=== PATIENT | female | born 1960 | race Caucasian/White ===

== ENCOUNTER 2017-12-13 17:21 | Emergency (ER) | payer MEDICARE ==
[~2017-12-13] VITALS: Ht 160 cm; Wt 59.0 kg
[~2017-12-13 17:21] MED LIST: LORCET 10-6501 EACH PO; SOMA250 MG
[2017-12-13 18:44] LABS: BASOPHILS % 0.3 % (0.0-1.0); EOSINOPHILS % 0.2 % (0.0-6.0); HEMATOCRIT 41.6 % (34.2-44.1); HEMOGLOBIN 13.9 g/dL (12.0-16.0); LYMPHOCYTES # (AUTO) 1.7 (1.0-3.2); LYMPHOCYTES % 18.4 % (18.0-39.1); MEAN CORPUSCULAR HEMOGLOBIN 31.7 pg (28-32); MEAN CORPUSCULAR HGB CONC 33.4 g/dL (31-35); MONOCYTES # (AUTO) 0.4 (0.2-0.8); MONOCYTES % 4.9 % (4.4-11.3); NEUTROPHILS # (AUTO) 6.8 (2.1-6.9); PLATELET COUNT 148 x10e3/uL (140-360); RED BLOOD COUNT 4.38 x10e6/uL (3.6-5.1); RED CELL DISTRIBUTION WIDTH 12.3 % (11.7-14.4)
[2017-12-13 18:55] LABS: CLARITY,URINE CLOUDY (CLEAR); COLOR,URINE YELLOW (YELLOW); LEUKOCYTE ESTERASE ,URINE 2+ (NEGATIVE); NITRITE,URINE POSITIVE (NEGATIVE)
[2017-12-13] MEDS: CEFTRIAXONE SOD 1 GM VIAL IM ONE ×2 (18:55→19:00)
[2017-12-13 18:56] LABS: BILIRUBIN,URINE NEGATIVE (NEGATIVE); KETONES,URINE TRACE (NEGATIVE); PROTEIN,URINE DIPSTICK TRACE (NEGATIVE); URINE UROBILINOGEN 0.2 mg/dL (0.2 - 1)
[2017-12-13] MEDS ORDERED: CEFTRIAXONE SOD 1 GM VIAL IV ONE (19:00)
[2017-12-13 19:01] LABS: ALANINE AMINOTRANSFERASE 7 IU/L (0-55); ALBUMIN 3.8 g/dL (3.5-5.0); ALBUMIN/GLOBULIN RATIO 1.1 (0.8-2.0); ALKALINE PHOSPHATASE 111 IU/L (40-150); ANION GAP 15.5 mmol/L (8-16); BLOOD UREA NITROGEN 10 mg/dL (7-26); BUN/CREATININE RATIO 14 (6-25); CALCIUM 9.6 mg/dL (8.4-10.2); CARBON DIOXIDE 24 mmol/L (22-29); CHLORIDE 103 mmol/L (98-107); CREATININE, SERUM 0.73 mg/dL (0.57-1.11); EST GLOMERULAR FILTRATION RATE > 60 ML/MIN (60-); GLUCOSE 113 mg/dL (74-118); POTASSIUM 3.5 mmol/L (3.5-5.1); SODIUM 139 mmol/L (136-145)
[2017-12-13 19:06] LABS: BACTERIA,URINE MANY /HPF; WBC,URINE (MAN) 21-50 /HPF (0-5)
--- NOTE | 2017-12-13 20:02 | Diagnostic Imaging Report ---
EXAM: CT Abdomen and Pelvis WITH contrast INDICATION: Sepsis, UTI COMPARISON: 03/12/2008 TECHNIQUE: Abdomen and pelvis were scanned utilizing a multidetector helical scanner from the lung base to the pubic symphysis after administration of IV contrast. Coronal and sagittal reformations were obtained. Routine protocol is performed. IV CONTRAST: None. ORAL CONTRAST: None RADIATION DOSE: Total DLP: 544.73 mGy*cm Estimated effective dose: (DLP x 0.015 x size factor) mSv COMPLICATIONS: None FINDINGS: LINES and TUBES: None. LOWER THORAX: Unremarkable HEPATOBILIARY: A few subcentimeter hepatic hypodensities are too small to characterize, but probably represent cysts.. No biliary ductal dilation. GALLBLADDER: The gallbladder is distended No radio-opaque stones or sludge. No wall thickening. SPLEEN: No splenomegaly. PANCREAS: No focal masses or ductal dilatation. ADRENALS: No adrenal nodules KIDNEYS/URETERS: Duplicated collecting systems bilaterally. There appear to be single bilateral ureters. No hydronephrosis. No cystic or solid mass lesions. No stones. GI TRACT: A gastric lap band device is present. No abnormal distention, wall thickening, or evidence of bowel obstruction. There is a large amount of stool in the colon. There are scattered sigmoid diverticula without evidence of acute inflammation. Appendix is normal. PELVIC ORGANS/BLADDER: Bilateral tubal ligation clips. The bladder is unremarkable. LYMPH NODES: No lymphadenopathy. VESSELS: There is mild atherosclerotic disease in the aorta and major arterial branches. PERITONEUM / RETROPERITONEUM: No free air or fluid. BONES: Multilevel degenerative changes of the thoracic and lumbar spine. Severe disc space narrowing at L5-S1. SOFT TISSUES: Unremarkable. IMPRESSION: 1. 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 There is a single ureter on each side. 2. No renal or ureteral stones. No hydronephrosis. Prosper Doan MD Signed by: Dr. Prosper Doan M.D. on 12/13/2017 7:58 PM
[2017-12-13] MEDS ORDERED: LEVAQUIN500 MG PO (20:43)
[2017-12-13] MEDS ORDERED: IBUPROFEN 600 MG TAB PO STA (20:57)
[2017-12-13] MEDS ORDERED: ACETAMINOPHEN 325 MG TAB PO ONE (21:00)
[2017-12-13 21:26] VITALS: BP 115/69
== END 2017-12-13 21:36 | disposition home or self-care (01) ==
LOC: ER 17:21
DX: R50.9 Fever, unspecified (principal); N30.91 Cystitis, unspecified with hematuria; I10 Essential (primary) hypertension; G40.909 Epilepsy, unspecified, not intractable, without status epilepticus; Z98.84 Bariatric surgery status
CPT/HCPCS: 36415; 74176; 80053; 81001; 83605; 84702; 85025; 87040; 87086; 87186; 99284; J0696

== ENCOUNTER → 2017-12-31 | Day surgery (SDC) | payer MEDICARE ==
[~2017-12-31] MED LIST changes: +FENTANYL CITRATE/PF 100MCG/2 ML INJ ONE; +LEVAQUIN500 MG PO; +LEVETIRACETAM500 MG PO; +LIDOCAINE HCL 2% LOCAL INJ 5 ML SDV VIAL INJ ONE; +LOSARTAN POTASS50 MG PO; +MELOXICAM15 MG PO; +MIDAZOLAM HCL 2 MG/2 ML VIAL ONE; +NORCO 10-325 T1 EACH PO; +PROPOFOL IV EMULSION 10 MG/ML 20 ML VIAL ONE; +SOMA350 MG PO
[2017-12-31 14:25] VITALS: BP 109/53
== END | disposition home or self-care (01) ==
LOC: OR 11:03
PROVIDERS: ATTEND Internal Medicine Gastroenterology
DX: K29.70 Gastritis, unspecified, without bleeding (principal); K21.0 Gastro-esophageal reflux disease with esophagitis; K44.9 Diaphragmatic hernia without obstruction or gangrene; K59.00 Constipation, unspecified; K64.8 Other hemorrhoids; Z71.3 Dietary counseling and surveillance; Z98.84 Bariatric surgery status; R63.4 Abnormal weight loss; R56.9 Unspecified convulsions; J44.9 Chronic obstructive pulmonary disease, unspecified; I10 Essential (primary) hypertension; G47.30 Sleep apnea, unspecified; E66.3 Overweight; F17.210 Nicotine dependence, cigarettes, uncomplicated; Z88.2 Allergy status to sulfonamides; Z01.810 Encounter for preprocedural cardiovascular examination; Z68.25 Body mass index [BMI] 25.0-25.9, adult
CPT/HCPCS: 43239; 45378; 88305; 88312; 93005; J2001; J2250

== ENCOUNTER → 2018-08-29 | Outpatient (CLI) | payer MEDICARE ==
[~2018-08-29] MED LIST changes: -FENTANYL CITRATE/PF 100MCG/2 ML INJ ONE; -LIDOCAINE HCL 2% LOCAL INJ 5 ML SDV VIAL INJ ONE; -MIDAZOLAM HCL 2 MG/2 ML VIAL ONE; -PROPOFOL IV EMULSION 10 MG/ML 20 ML VIAL ONE
== END ==
LOC: MAMMO 08:34
PROVIDERS: ATTEND Internal Medicine
DX: Z12.31 Encounter for screening mammogram for malignant neoplasm of breast (principal)
CPT/HCPCS: 77067

== ENCOUNTER 2020-05-24 15:00 | Emergency (ER) | payer MEDICARE ==
[~2020-05-24] VITALS: Ht 160 cm; Wt 54.4 kg
== END 2020-05-24 18:48 | disposition home or self-care (01) ==
LOC: ER 15:14
DX: R10.33 Periumbilical pain (principal); K59.00 Constipation, unspecified; I10 Essential (primary) hypertension; J44.9 Chronic obstructive pulmonary disease, unspecified; M54.9 Dorsalgia, unspecified; G89.29 Other chronic pain; Z98.84 Bariatric surgery status; F17.210 Nicotine dependence, cigarettes, uncomplicated
CPT/HCPCS: 74019; 99283

== ENCOUNTER → 2020-11-30 | Outpatient (CLI) | payer MEDICARE | LOC: MAMMO 09:44 | PROVIDERS: ATTEND Internal Medicine | DX: Z12.31 Encounter for screening mammogram for malignant neoplasm of breast (principal) | CPT/HCPCS: 77067 ==

== ENCOUNTER 2021-09-24 15:19 | Inpatient (IN) | payer MEDICARE ==
[~2021-09-24] VITALS: Ht 160 cm; Wt 67.1 kg
[2021-09-24] VITALS (8 sets, daily range): BP systolic 101–120; BP diastolic 60–78
[2021-09-24] MEDS ORDERED: CEFEPIME 2 GM in SODIUM CHLORIDE 0.9% 100 ML IV ONE (15:45)
[2021-09-24] MEDS ORDERED: SODIUM CHLORIDE 0.9% 1000ML 1,000 ML IV ONE ×2 (15:45→17:30)
[2021-09-24] MEDS ORDERED: METHYLPREDNISOLONE SOD SUCC 125 MG/2ML VIAL IV ONE (15:45)
[2021-09-24 15:50] LABS: BASOPHILS % 0.2 % (0.0-1.0); EOSINOPHILS % 0.2 % (0.0-6.0); HEMATOCRIT 38.3 % (34.2-44.1); HEMOGLOBIN 12.5 g/dL (12.0-16.0); LYMPHOCYTES # (AUTO) 0.9 (1.0-3.2); LYMPHOCYTES % 9.7 % (18.0-39.1); MEAN CORPUSCULAR HGB CONC 32.6 g/dL (31-35); MONOCYTES # (AUTO) 0.9 (0.2-0.8); MONOCYTES % 9.5 % (4.4-11.3); NEUTROPHILS # (AUTO) 7.4 (2.1-6.9); NEUTROPHILS % 79.8 % (38.7-80.0); PLATELET COUNT 154 x10e3/uL (140-360); RED BLOOD COUNT 4.03 x10e6/uL (3.6-5.1); RED CELL DISTRIBUTION WIDTH 12.7 % (11.7-14.4)
[2021-09-24 16:00] LABS: CLARITY,URINE HAZY (CLEAR); COLOR,URINE YELLOW (YELLOW); LEUKOCYTE ESTERASE ,URINE NEGATIVE (NEGATIVE); NITRITE,URINE NEGATIVE (NEGATIVE); PROTEIN,URINE DIPSTICK NEGATIVE (NEGATIVE)
[2021-09-24] MEDS ORDERED: ACETAMINOPHEN 325 MG TAB PO ONE (16:00)
[2021-09-24 16:01] LABS: INR 1.05; KETONES,URINE NEGATIVE (NEGATIVE); PROTHROMBIN TIME 14.7 seconds (11.9-14.5); URINE UROBILINOGEN 0.2 mg/dL (0.2 - 1)
[2021-09-24 16:02] LABS: PARTIAL THROMBOPLASTIN TIME 39.2 seconds (23.8-35.5)
[2021-09-24 16:07] LABS: AMPHETAMINES SCREEN,URINE NEGATIVE (NEGATIVE); PHENCYCLIDINE SCREEN,URINE NEGATIVE (NEGATIVE)
[2021-09-24 16:08] LABS: BACTERIA,URINE FEW /HPF; BENZODIAZEPINES SCREEN,URINE POSITIVE (NEGATIVE); EPITHELIAL CELLS,URINE FEW /LPF
[2021-09-24 16:11] LABS: ALBUMIN/GLOBULIN RATIO 0.8 (0.8-2.0); ALKALINE PHOSPHATASE 121 IU/L (40-150); ANION GAP 17.6 mmol/L (8-16); BLOOD UREA NITROGEN 18 mg/dL (7-26); BUN/CREATININE RATIO 16 (6-25); CALCIUM 8.3 mg/dL (8.4-10.2); CARBON DIOXIDE 21 mmol/L (22-29); CHLORIDE 99 mmol/L (98-107); CREATINE KINASE 230 IU/L (29-168); CREATININE, SERUM 1.16 mg/dL (0.57-1.11); GLUCOSE 118 mg/dL (74-118); POTASSIUM 3.6 mmol/L (3.5-5.1); SODIUM 134 mmol/L (136-145)
[2021-09-24 16:19] LABS: ALANINE AMINOTRANSFERASE < 6 IU/L (0-55)
[2021-09-24] MEDS ORDERED: ALBUTEROL/IPRATROPIUM 3 ML NEB NEB ONE (17:00)
[2021-09-24] MEDS ORDERED: SODIUM CHLORIDE 0.9% 1000ML 1,000 ML IV STA (17:20)
[2021-09-24] MEDS ORDERED: SODIUM CHLORIDE 0.9% 1000ML 1,000 ML IV SCH (17:30)
[2021-09-24] MEDS ORDERED: SODIUM CHLORIDE 0.9% 1000ML 2,000 ML ONE (17:31)
[2021-09-24 17:38] LABS: ABG HCO3 21 mmol/L (22-26); ABG PCO2 44 mmHg (35-45); ABG PH 7.28 (7.35-7.45); ABG PO2 77 mmHg (80-105); ABG TCO2 22
[2021-09-24] MEDS ORDERED: ACETAMINOPHEN 325 MG TAB PO PRN ×2 (18:30→22:15)
[2021-09-24] MEDS ORDERED: LACTATED RINGER'S 1,000 ML INJ ONE (18:30)
[2021-09-24] MEDS ORDERED: THIAMINE HCL INJ 100 MG/ML 2ML VIAL IV ONE (18:45)
[2021-09-24] MEDS ORDERED: NOREPINEPHRINE 8 MG/D5W 250 ML 250 ML IV SCH (18:45)
[2021-09-24] MEDS: ALBUTEROL SULF 0.083% NEB SOLN 3 ML NEB NEB SCH ×2 (19:50→22:38)
[2021-09-24] MEDS: IPRATROPIUM BROMIDE 0.02% 2.5 ML NEB NEB SCH (19:50)
[2021-09-24] MEDS ORDERED: METHYLPREDNISOLONE SOD SUCC 125 MG/2ML VIAL IV SCH (22:00)
[2021-09-24] MEDS ORDERED: BENZONATATE 100 MG CAP PO PRN (22:15)
[2021-09-24] MEDS ORDERED: ALBUTEROL/IPRATROPIUM 3 ML NEB NEB PRN (22:15)
[2021-09-24] MEDS ORDERED: DIPHENHYDRAMINE HCL 25 MG CAP PO PRN (22:15)
[2021-09-24] MEDS ORDERED: DOCUSATE SODIUM 100 MG CAP PO PRN (22:15)
[2021-09-24] MEDS ORDERED: POTASSIUM CHLORIDE 20 MEQ TAB CR PO PRN (22:15)
[2021-09-24] MEDS ORDERED: SIMETHICONE 80 MG CHEW PO PRN (22:15)
[2021-09-24] MEDS ORDERED: ONDANSETRON HCL INJ 2MG/ML 2ML 2 MG/ML VIAL IV PRN (22:15)
[2021-09-24] MEDS ORDERED: HYDRALAZINE HCL 20 MG/ML VIAL IV PRN (22:15)
[2021-09-24] MEDS ORDERED: LIDOCAINE 4% PATCH TP PRN (22:15)
[2021-09-24] MEDS ORDERED: DEXTROSE 50% SYRINGE 50 ML IV PRN (22:15)
[2021-09-25] VITALS: BP 102/56
[2021-09-25] MEDS ORDERED: METHYLPREDNISOLONE SOD SUCC 40 MG/ML VIAL 1ML IV SCH
[2021-09-25 00:25] LABS: CREATINE KINASE 257 IU/L (29-168)
[2021-09-25 01:00] VITALS: BP 117/73
[2021-09-25 02:00] VITALS: BP 125/77
[2021-09-25] MEDS: IPRATROPIUM BROMIDE 0.02% 2.5 ML NEB NEB SCH (02:55)
[2021-09-25] MEDS: ALBUTEROL SULF 0.083% NEB SOLN 3 ML NEB NEB SCH (02:55)
[2021-09-25 03:00] VITALS: BP 108/70
[2021-09-25] MEDS ORDERED: PANTOPRAZOLE SOD 40 MG TABEC PO SCH (07:30)
[2021-09-25] MEDS ORDERED: ENOXAPARIN SOD INJ 40 MG/0.4 ML SYR SC SCH (17:00)
== END 2021-09-25 06:35 | disposition left against medical advice (07) | DRG 871 ==
LOC: ER 15:38 → ERHOLD 17:27 → ICU 20:25
PROVIDERS: ADMIT Internal Medicine; ATTEND Internal Medicine
PROC: 02HV33Z Insertion of Infusion Device into Superior Vena Cava, Percutaneous Approach (ICD-10-PCS; principal; 2021-09-24)
PROC: 3E043XZ Introduction of Vasopressor into Central Vein, Percutaneous Approach (ICD-10-PCS; 2021-09-24)
PROC: 3E04329 Introduction of Other Anti-infective into Central Vein, Percutaneous Approach (ICD-10-PCS; 2021-09-24)
DX: A41.9 Sepsis, unspecified organism (principal); J18.9 Pneumonia, unspecified organism; G93.41 Metabolic encephalopathy; J44.0 Chronic obstructive pulmonary disease with (acute) lower respiratory infection; J44.1 Chronic obstructive pulmonary disease with (acute) exacerbation; N17.9 Acute kidney failure, unspecified; E87.1 Hypo-osmolality and hyponatremia; D64.9 Anemia, unspecified; Z98.84 Bariatric surgery status; Z20.822 Contact with and (suspected) exposure to COVID-19; Z88.2 Allergy status to sulfonamides; F17.200 Nicotine dependence, unspecified, uncomplicated; R09.02 Hypoxemia; G89.29 Other chronic pain; F11.90 Opioid use, unspecified, uncomplicated; R65.20 Severe sepsis without septic shock
CPT/HCPCS: 36415; 36569; 36600; 51700; 71045; 80053; 80307; 80320; 80329; 81001; 82550; 82553; 82805; 83605; 84484; 85025; 85610; 85730; 87040; 87071; 87186; 87205; 94640; 94799; 99285; J0456; J0692; J2920; J2930; J3411; J7030; J7050; J7121

== ENCOUNTER 2021-09-26 00:13 | Inpatient (IN) | payer MEDICARE ==
[~2021-09-26] VITALS: Ht 160 cm; Wt 68.0 kg
[2021-09-26] MEDS ORDERED: SODIUM CHLORIDE 0.9% 1000ML 1,000 ML IV ONE ×2 (00:45→02:15)
[2021-09-26 01:00] LABS: BASOPHILS % 0.1 % (0.0-1.0); HEMATOCRIT 38.7 % (34.2-44.1); HEMOGLOBIN 12.5 g/dL (12.0-16.0); LYMPHOCYTES # (AUTO) 1.6 (1.0-3.2); LYMPHOCYTES % 14.9 % (18.0-39.1); MEAN CORPUSCULAR HEMOGLOBIN 31.3 pg (28-32); MEAN CORPUSCULAR HGB CONC 32.3 g/dL (31-35); MEAN CORPUSCULAR VOLUME 96.8 fL (81-99); MONOCYTES # (AUTO) 0.7 (0.2-0.8); MONOCYTES % 6.3 % (4.4-11.3); NEUTROPHILS # (AUTO) 8.1 (2.1-6.9); NEUTROPHILS % 78.3 % (38.7-80.0); PLATELET COUNT 204 x10e3/uL (140-360); RED CELL DISTRIBUTION WIDTH 12.9 % (11.7-14.4)
[2021-09-26 01:15] LABS: ALANINE AMINOTRANSFERASE 11 IU/L (0-55); ALBUMIN 3.3 g/dL (3.5-5.0); ALBUMIN/GLOBULIN RATIO 0.8 (0.8-2.0); ALKALINE PHOSPHATASE 114 IU/L (40-150); ANION GAP 16.3 mmol/L (8-16); BLOOD UREA NITROGEN 15 mg/dL (7-26); BUN/CREATININE RATIO 19 (6-25); CALCIUM 9.1 mg/dL (8.4-10.2); CARBON DIOXIDE 25 mmol/L (22-29); CHLORIDE 105 mmol/L (98-107); CREATINE KINASE 349 IU/L (29-168); CREATININE, SERUM 0.81 mg/dL (0.57-1.11); GLUCOSE 88 mg/dL (74-118); POTASSIUM 3.3 mmol/L (3.5-5.1)
[2021-09-26] MEDS ORDERED: ACETAMINOPHEN 325 MG TAB PO PRN (01:15)
[2021-09-26] MEDS ORDERED: SODIUM CHLORIDE 0.9% 1000ML 1,000 ML IV SCH (01:15)
[2021-09-26 01:20] LABS: SODIUM 143 mmol/L (136-145)
[2021-09-26] MEDS: Vancomycin IV 1 GM in SODIUM CHLORIDE 0.9% 250ML 250 ML IV SCH ×2 (01:22→12:12)
[2021-09-26] MEDS ORDERED: SIMETHICONE 80 MG CHEW PO PRN (01:45)
[2021-09-26] MEDS ORDERED: DIPHENHYDRAMINE HCL 25 MG CAP PO PRN (01:45)
[2021-09-26] MEDS ORDERED: DEXTROSE 50% SYRINGE 50 ML IV PRN (01:45)
[2021-09-26] MEDS ORDERED: ALBUTEROL/IPRATROPIUM 3 ML NEB NEB PRN (01:45)
[2021-09-26] MEDS ORDERED: MELATONIN 5 MG TABLET PO PRN (01:45)
[2021-09-26] MEDS ORDERED: HYDRALAZINE HCL 20 MG/ML VIAL IV PRN (01:45)
[2021-09-26] MEDS ORDERED: DOCUSATE SODIUM 100 MG CAP PO PRN (01:45)
[2021-09-26] MEDS ORDERED: ONDANSETRON HCL INJ 2MG/ML 2ML 2 MG/ML VIAL IV PRN (01:45)
[2021-09-26] MEDS: DEXTROSE 5%/0.9% SOD CHL 1,000 ML IV SCH ×2 (02:59→15:16)
[2021-09-26] MEDS: ALBUTEROL SULF 0.083% NEB SOLN 3 ML NEB NEB SCH ×5 (04:17→18:55)
[2021-09-26] MEDS: PANTOPRAZOLE SOD 40 MG TABEC PO SCH (07:10)
[2021-09-26] MEDS: IPRATROPIUM BROMIDE 0.02% 2.5 ML NEB NEB SCH ×4 (07:13→19:13)
[2021-09-26] MEDS: TRAMADOL HCL 50 MG TAB PO PRN ×3 (07:15→16:47)
[2021-09-26 09:29] LABS: CREATINE KINASE 164 IU/L (29-168)
[2021-09-26] MEDS: NICOTINE 21 MG/EA PATCH TOP PRN (11:28)
[2021-09-26] MEDS: ENOXAPARIN SOD INJ 40 MG/0.4 ML SYR SC SCH (16:47)
[2021-09-26 19:51] LABS: CREATINE KINASE 81 IU/L (29-168)
[2021-09-26 21:54] VITALS: BP 132/77
[2021-09-27] VITALS (8 sets, daily range): BP systolic 101–139; BP diastolic 53–75
[2021-09-27] MEDS: ALBUTEROL SULF 0.083% NEB SOLN 3 ML NEB NEB SCH ×6 (00:25→22:00)
[2021-09-27] MEDS: Vancomycin IV 1 GM in SODIUM CHLORIDE 0.9% 250ML 250 ML IV SCH ×2 (00:37→12:00)
[2021-09-27] MEDS: TRAMADOL HCL 50 MG TAB PO PRN ×3 (03:47→22:02)
[2021-09-27] MEDS: DEXTROSE 5%/0.9% SOD CHL 1,000 ML IV SCH ×2 (04:25→17:28)
[2021-09-27 05:57] LABS: BASOPHILS % 0.3 % (0.0-1.0); EOSINOPHILS % 0.3 % (0.0-6.0); HEMATOCRIT 30.7 % (34.2-44.1); LYMPHOCYTES # (AUTO) 1.7 (1.0-3.2); MEAN CORPUSCULAR HEMOGLOBIN 30.5 pg (28-32); MEAN CORPUSCULAR HGB CONC 31.9 g/dL (31-35); MEAN CORPUSCULAR VOLUME 95.6 fL (81-99); MONOCYTES # (AUTO) 0.4 (0.2-0.8); MONOCYTES % 9.6 % (4.4-11.3); NEUTROPHILS # (AUTO) 1.8 (2.1-6.9); NEUTROPHILS % 46.8 % (38.7-80.0); PLATELET COUNT 157 x10e3/uL (140-360); RED BLOOD COUNT 3.21 x10e6/uL (3.6-5.1); RED CELL DISTRIBUTION WIDTH 13.1 % (11.7-14.4)
[2021-09-27] MEDS: BENZONATATE 100 MG CAP PO PRN (06:02)
[2021-09-27 06:08] LABS: HEMOGLOBIN 9.8 g/dL (12.0-16.0)
[2021-09-27 06:29] LABS: MAGNESIUM 1.6 MG/DL (1.3-2.1); PHOSPHORUS 2.9 MG/DL (2.3-4.7)
[2021-09-27 06:40] LABS: ERYTHROCYTE SEDIMENTATION RATE 47 mm/hr (0-20)
[2021-09-27 06:43] LABS: ANION GAP 11.9 mmol/L (8-16); BLOOD UREA NITROGEN < 5 mg/dL (7-26); CALCIUM 7.7 mg/dL (8.4-10.2); CARBON DIOXIDE 25 mmol/L (22-29); CHLORIDE 109 mmol/L (98-107); CREATININE, SERUM 0.55 mg/dL (0.57-1.11); GLUCOSE 94 mg/dL (74-118); SODIUM 143 mmol/L (136-145)
[2021-09-27 06:44] LABS: BUN/CREATININE RATIO 9 (6-25)
[2021-09-27 06:45] LABS: POTASSIUM 2.9 mmol/L (3.5-5.1)
[2021-09-27] MEDS: IPRATROPIUM BROMIDE 0.02% 2.5 ML NEB NEB SCH ×4 (07:16→23:45)
[2021-09-27] MEDS: PANTOPRAZOLE SOD 40 MG TABEC PO SCH (09:11)
[2021-09-27] MEDS: ENOXAPARIN SOD INJ 40 MG/0.4 ML SYR SC SCH (16:43)
[2021-09-27] MEDS: POTASSIUM CHLORIDE 20 MEQ TAB CR PO PRN (19:23)
[2021-09-27] MEDS: LIDOCAINE 4% PATCH TP PRN (22:02)
[2021-09-28] VITALS (8 sets, daily range): BP systolic 125–153; BP diastolic 80–94
[2021-09-28] MEDS: ALBUTEROL SULF 0.083% NEB SOLN 3 ML NEB NEB SCH ×6 (02:00→20:10)
[2021-09-28] MEDS: Vancomycin IV 1 GM in SODIUM CHLORIDE 0.9% 250ML 250 ML IV SCH ×2 (03:02→12:49)
[2021-09-28] MEDS: IPRATROPIUM BROMIDE 0.02% 2.5 ML NEB NEB SCH ×3 (03:07→18:46)
[2021-09-28] MEDS: BENZONATATE 100 MG CAP PO PRN (03:11)
[2021-09-28] MEDS: DEXTROSE 5%/0.9% SOD CHL 1,000 ML IV SCH (05:53)
[2021-09-28] MEDS: PANTOPRAZOLE SOD 40 MG TABEC PO SCH (08:11)
[2021-09-28] MEDS: LIDOCAINE 4% PATCH TP PRN (08:12)
[2021-09-28] MEDS: NICOTINE 21 MG/EA PATCH TOP PRN (08:12)
[2021-09-28 13:12] LABS: ANION GAP 14.1 mmol/L (8-16); BLOOD UREA NITROGEN < 5 mg/dL (7-26); CALCIUM 7.6 mg/dL (8.4-10.2); CARBON DIOXIDE 27 mmol/L (22-29); CHLORIDE 105 mmol/L (98-107); GLUCOSE 92 mg/dL (74-118); POTASSIUM 3.1 mmol/L (3.5-5.1); SODIUM 143 mmol/L (136-145)
[2021-09-28 13:14] LABS: BUN/CREATININE RATIO 10 (6-25)
[2021-09-28] MEDS: TRAMADOL HCL 50 MG TAB PO PRN (15:07)
[2021-09-28] MEDS: POTASSIUM CHLORIDE 20 MEQ TAB CR PO PRN (15:07)
[2021-09-28] MEDS: ENOXAPARIN SOD INJ 40 MG/0.4 ML SYR SC SCH (16:43)
[2021-09-29] VITALS: BP 136/81
[2021-09-29] MEDS: IPRATROPIUM BROMIDE 0.02% 2.5 ML NEB NEB SCH ×5 (00:10→19:57)
[2021-09-29] MEDS: ALBUTEROL SULF 0.083% NEB SOLN 3 ML NEB NEB SCH ×6 (00:11→19:59)
[2021-09-29] MEDS: TRAMADOL HCL 50 MG TAB PO PRN ×4 (00:50→19:12)
[2021-09-29] MEDS: BENZONATATE 100 MG CAP PO PRN (00:50)
[2021-09-29] MEDS: Vancomycin IV 1 GM in SODIUM CHLORIDE 0.9% 250ML 250 ML IV SCH ×2 (01:00→13:00)
[2021-09-29 04:00] VITALS: BP 133/74
[2021-09-29 06:18] LABS: BASOPHILS % 0.5 % (0.0-1.0); EOSINOPHILS # (AUTO) 0.1 (0.0-0.4); EOSINOPHILS % 1.6 % (0.0-6.0); HEMATOCRIT 34.9 % (34.2-44.1); HEMOGLOBIN 11.2 g/dL (12.0-16.0); LYMPHOCYTES # (AUTO) 1.2 (1.0-3.2); LYMPHOCYTES % 26.5 % (18.0-39.1); MEAN CORPUSCULAR HEMOGLOBIN 30.8 pg (28-32); MEAN CORPUSCULAR HGB CONC 32.1 g/dL (31-35); MEAN CORPUSCULAR VOLUME 95.9 fL (81-99); MONOCYTES # (AUTO) 0.4 (0.2-0.8); MONOCYTES % 8.6 % (4.4-11.3); NEUTROPHILS # (AUTO) 2.8 (2.1-6.9); NEUTROPHILS % 62.3 % (38.7-80.0); PLATELET COUNT 192 x10e3/uL (140-360); RED BLOOD COUNT 3.64 x10e6/uL (3.6-5.1); RED CELL DISTRIBUTION WIDTH 12.5 % (11.7-14.4)
[2021-09-29 07:01] LABS: ANION GAP 19.3 mmol/L (8-16); BLOOD UREA NITROGEN < 5 mg/dL (7-26); CALCIUM 7.7 mg/dL (8.4-10.2); CARBON DIOXIDE 24 mmol/L (22-29); CHLORIDE 104 mmol/L (98-107); CREATININE, SERUM 0.56 mg/dL (0.57-1.11); GLUCOSE 79 mg/dL (74-118); POTASSIUM 3.3 mmol/L (3.5-5.1); SODIUM 144 mmol/L (136-145)
[2021-09-29 07:02] LABS: BUN/CREATININE RATIO 9 (6-25)
[2021-09-29 07:54] VITALS: BP 133/74
[2021-09-29] MEDS: PANTOPRAZOLE SOD 40 MG TABEC PO SCH (07:56)
[2021-09-29] MEDS: POTASSIUM CHLORIDE 20 MEQ TAB CR PO PRN (08:03)
[2021-09-29] MEDS: LIDOCAINE 4% PATCH TP PRN (08:03)
[2021-09-29] MEDS: NICOTINE 21 MG/EA PATCH TOP PRN (08:03)
[2021-09-29 08:37] VITALS: BP 151/86
[2021-09-29 12:05] VITALS: BP 134/79
[2021-09-29] MEDS ORDERED: ONDANSETRON HCL 4 MG ORAL DISINTEGRATING TAB PO PRN (15:15)
[2021-09-29] MEDS: ENOXAPARIN SOD INJ 40 MG/0.4 ML SYR SC SCH (16:20)
== END 2021-09-29 20:55 | disposition home or self-care (01) | DRG 871 ==
LOC: ER 00:20 → OBSVTOIN 01:08 → INTOOBSV 01:08 → ERHOLD 01:08 → MED/SURG2 20:49
PROVIDERS: ADMIT Internal Medicine; ATTEND Internal Medicine
PROC: 02HV33Z Insertion of Infusion Device into Superior Vena Cava, Percutaneous Approach (ICD-10-PCS; principal; 2021-09-26)
PROC: 3E04329 Introduction of Other Anti-infective into Central Vein, Percutaneous Approach (ICD-10-PCS; 2021-09-26)
DX: A41.50 Gram-negative sepsis, unspecified (principal); G93.41 Metabolic encephalopathy; J18.9 Pneumonia, unspecified organism; N17.0 Acute kidney failure with tubular necrosis; J44.0 Chronic obstructive pulmonary disease with (acute) lower respiratory infection; E87.2 Acidosis; N39.0 Urinary tract infection, site not specified; J44.1 Chronic obstructive pulmonary disease with (acute) exacerbation; R65.20 Severe sepsis without septic shock; D63.8 Anemia in other chronic diseases classified elsewhere; F17.210 Nicotine dependence, cigarettes, uncomplicated; M17.10 Unilateral primary osteoarthritis, unspecified knee; Z96.659 Presence of unspecified artificial knee joint; Z79.891 Long term (current) use of opiate analgesic; Z98.84 Bariatric surgery status; E87.6 Hypokalemia; G89.4 Chronic pain syndrome; M17.11 Unilateral primary osteoarthritis, right knee; Z96.651 Presence of right artificial knee joint; Z88.2 Allergy status to sulfonamides; J44.9 Chronic obstructive pulmonary disease, unspecified
CPT/HCPCS: 36415; 36569; 71045; 80048; 80053; 80202; 82550; 82553; 82948; 83605; 83735; 84100; 84443; 84484; 85025; 85651; 87040; 93005; 93306; 94640; 94799; 96361; 99251; 99284; J0692; J1650; J2185; J2405; J3370; J7030; J7042; J7050

== ENCOUNTER → 2022-06-20 | Outpatient (CLI) | payer MEDICARE | LOC: RAD 08:47 | PROVIDERS: ATTEND Internal Medicine | DX: M79.604 Pain in right leg (principal) | CPT/HCPCS: 93971 ==

== ENCOUNTER 2022-07-06 04:21 | Emergency (ER) | payer MEDICARE ==
[~2022-07-06] VITALS: Ht 160 cm; Wt 68.0 kg
[2022-07-06] MEDS ORDERED: ASPIRIN 81 MG CHEW TAB PO ONE (04:30)
[2022-07-06] MEDS ORDERED: KETOROLAC TROMETHAMINE 30 MG/ML VIAL IV STA (04:36)
[2022-07-06 04:37] LABS: BASOPHILS % 0.4 % (0.0-1.0); EOSINOPHILS % 0.6 % (0.0-6.0); HEMATOCRIT 39.1 % (34.2-44.1); HEMOGLOBIN 12.3 g/dL (12.0-16.0); LYMPHOCYTES # (AUTO) 1.3 (1.0-3.2); MEAN CORPUSCULAR HEMOGLOBIN 29.6 pg (28-32); MEAN CORPUSCULAR HGB CONC 31.5 g/dL (31-35); MEAN CORPUSCULAR VOLUME 94.2 fL (81-99); MONOCYTES # (AUTO) 0.3 (0.2-0.8); MONOCYTES % 6.6 % (4.4-11.3); NEUTROPHILS # (AUTO) 3.5 (2.1-6.9); NEUTROPHILS % 67.2 % (38.7-80.0); PLATELET COUNT 171 x10e3/uL (140-360); RED BLOOD COUNT 4.15 x10e6/uL (3.6-5.1); RED CELL DISTRIBUTION WIDTH 13.9 % (11.7-14.4)
[2022-07-06] MEDS ORDERED: KETOROLAC TROMETHAMINE 30 MG/ML VIAL ONE (04:52)
[2022-07-06 04:56] LABS: ALBUMIN 3.3 g/dL (3.5-5.0); ALKALINE PHOSPHATASE 104 IU/L (40-150); ANION GAP 14.4 mmol/L (8-16); BLOOD UREA NITROGEN 6 mg/dL (7-26); BUN/CREATININE RATIO 8 (6-25); CARBON DIOXIDE 23 mmol/L (22-29); CHLORIDE 106 mmol/L (98-107); CREATINE KINASE 17 IU/L (29-168); CREATININE, SERUM 0.73 mg/dL (0.57-1.11); GLUCOSE 155 mg/dL (74-118); POTASSIUM 3.4 mmol/L (3.5-5.1); SODIUM 140 mmol/L (136-145)
[2022-07-06 04:57] LABS: ALANINE AMINOTRANSFERASE < 6 IU/L (0-55)
[2022-07-06] MEDS ORDERED: IOPAMIDOL 370 MG/ML 100 ML INFUS..BTL INJ ONE (05:19)
[2022-07-06] MEDS ORDERED: DICYCLOMINE HCL20 MG PO (05:51)
[2022-07-06] MEDS ORDERED: PANTOPRAZOLE SO40 MG PO (05:51)
[2022-07-06] MEDS ORDERED: ONDANSETRON ODT4 MG PO (05:51)
== END 2022-07-06 06:00 | disposition home or self-care (01) ==
LOC: ER 04:29
DX: R10.9 Unspecified abdominal pain (principal); R11.2 Nausea with vomiting, unspecified; R19.7 Diarrhea, unspecified; Z20.822 Contact with and (suspected) exposure to COVID-19; Z98.84 Bariatric surgery status; F17.210 Nicotine dependence, cigarettes, uncomplicated
CPT/HCPCS: 36415; 74177; 80053; 80320; 82550; 82553; 83690; 84484; 85025; 93005; 99284; C9113; J1885; Q9967; U0002

== ENCOUNTER → 2022-08-18 | Outpatient (CLI) | payer MEDICARE ==
[~2022-08-18] MED LIST changes: +DICYCLOMINE HCL20 MG PO; +IOPAMIDOL 370 MG/ML 100 ML INFUS..BTL INJ ONE; +ONDANSETRON ODT4 MG PO; +PANTOPRAZOLE SO40 MG PO
[2022-08-18 16:45] LABS: CREATININE, SERUM 0.89 mg/dL (0.57-1.11)
== END ==
LOC: CT 15:53
PROVIDERS: ATTEND Internal Medicine
DX: R10.84 Generalized abdominal pain (principal)
CPT/HCPCS: 36415; 74160; 82565; 84520; Q9967

== ENCOUNTER → 2023-03-23 | Outpatient (REF) | payer MEDICARE ==
[~2023-03-23] MED LIST changes: +CIPRO500 MG PO; -IOPAMIDOL 370 MG/ML 100 ML INFUS..BTL INJ ONE; +LOSARTAN POTASS25 MG PO; +NEURONTIN300 MG PO
== END ==
LOC: MAMMO 12:59
PROVIDERS: ATTEND Internal Medicine
DX: Z12.31 Encounter for screening mammogram for malignant neoplasm of breast (principal); M81.0 Age-related osteoporosis without current pathological fracture
CPT/HCPCS: 77067; 77080

== ENCOUNTER 2023-04-01 13:33 | Inpatient (IN) | payer MEDICARE ==
[~2023-04-01] VITALS: Ht 160 cm; Wt 72.3 kg
[2023-04-01 14:30] LABS: BASOPHILS % 0.6 % (0.0-1.0); EOSINOPHILS # (AUTO) 0.1 (0.0-0.4); EOSINOPHILS % 1.2 % (0.0-6.0); HEMATOCRIT 38.1 % (34.2-44.1); HEMOGLOBIN 12.2 g/dL (12.0-16.0); LYMPHOCYTES # (AUTO) 2.1 (1.0-3.2); LYMPHOCYTES % 42.1 % (18.0-39.1); MEAN CORPUSCULAR HEMOGLOBIN 31.7 pg (28-32); MONOCYTES # (AUTO) 0.3 (0.2-0.8); MONOCYTES % 6.6 % (4.4-11.3); NEUTROPHILS # (AUTO) 2.5 (2.1-6.9); NEUTROPHILS % 49.1 % (38.7-80.0); PLATELET COUNT 196 x10e3/uL (140-360); RED BLOOD COUNT 3.85 x10e6/uL (3.6-5.1); RED CELL DISTRIBUTION WIDTH 12.6 % (11.7-14.4); WHITE BLOOD COUNT 5.01 x10e3/uL (4.8-10.8)
[2023-04-01] MEDS ORDERED: SODIUM CHLORIDE FLUSH 10 ML SYR INJ PRN (14:30)
[2023-04-01] MEDS ORDERED: ONDANSETRON HCL INJ 2MG/ML 2ML 2 MG/ML VIAL IV PRN (14:30)
[2023-04-01 14:50] LABS: ALBUMIN 3.4 g/dL (3.5-5.0); ALBUMIN/GLOBULIN RATIO 1.1 (0.8-2.0); ANION GAP 14.2 mmol/L (8-16); BILIRUBIN,TOTAL 0.3 mg/dL (0.2-1.2); CALCIUM 8.7 mg/dL (8.4-10.2); CREATININE, SERUM 0.86 mg/dL (0.57-1.11); TOTAL PROTEIN 6.4 g/dL (6.5-8.1)
[2023-04-01 14:52] LABS: POTASSIUM 3.2 mmol/L (3.5-5.1)
[2023-04-01] MEDS: HYDROCODONE/APAP 10MG-325MG TAB PO PRN ×2 (15:00→20:41)
[2023-04-01 20:00] VITALS: BP 121/53; PULSE 79; RESP 18; TEMP 98.6; O2SAT 99
[2023-04-01 21:00] VITALS: BP 121/53; PULSE 79; RESP 18; TEMP 98.6; O2SAT 99
[2023-04-01] MEDS ORDERED: METHIMAZOLE5 MG (22:39)
[2023-04-02] VITALS (9 sets, daily range): BP systolic 111–147; BP diastolic 53–88; PULSE 72–96; RESP 18; TEMP 98–98.6; O2SAT 99–100
[2023-04-02] MEDS: HYDROCODONE/APAP 10MG-325MG TAB PO PRN ×4 (03:05→19:06)
[2023-04-02 06:52] LABS: BASOPHILS % 0.6 % (0.0-1.0); EOSINOPHILS # (AUTO) 0.1 (0.0-0.4); EOSINOPHILS % 1.3 % (0.0-6.0); HEMATOCRIT 35.4 % (34.2-44.1); HEMOGLOBIN 11.2 g/dL (12.0-16.0); LYMPHOCYTES # (AUTO) 2.3 (1.0-3.2); LYMPHOCYTES % 49.7 % (18.0-39.1); MEAN CORPUSCULAR HEMOGLOBIN 31.5 pg (28-32); MEAN CORPUSCULAR HGB CONC 31.6 g/dL (31-35); MEAN CORPUSCULAR VOLUME 99.4 fL (81-99); MONOCYTES # (AUTO) 0.4 (0.2-0.8); MONOCYTES % 8.1 % (4.4-11.3); NEUTROPHILS # (AUTO) 1.9 (2.1-6.9); NEUTROPHILS % 39.9 % (38.7-80.0); PLATELET COUNT 182 x10e3/uL (140-360); RED BLOOD COUNT 3.56 x10e6/uL (3.6-5.1); RED CELL DISTRIBUTION WIDTH 12.4 % (11.7-14.4); WHITE BLOOD COUNT 4.67 x10e3/uL (4.8-10.8)
[2023-04-02 07:25] LABS: ALBUMIN 2.9 g/dL (3.5-5.0); ALBUMIN/GLOBULIN RATIO 1.2 (0.8-2.0); ANION GAP 11.6 mmol/L (8-16); BILIRUBIN,TOTAL 0.4 mg/dL (0.2-1.2); CALCIUM 8.3 mg/dL (8.4-10.2); CREATININE, SERUM 0.71 mg/dL (0.57-1.11); POTASSIUM 3.6 mmol/L (3.5-5.1); TOTAL PROTEIN 5.4 g/dL (6.5-8.1)
[2023-04-02] MEDS ORDERED: ONDANSETRON HCL 4 MG ORAL DISINTEGRATING TAB PO PRN (10:15)
[2023-04-02] MEDS: NICOTINE 21 MG/EA PATCH TOP SCH ×2 (10:15→10:43)
[2023-04-02] MEDS ORDERED: DICYCLOMINE HCL 20 MG TAB PO PRN (10:15)
[2023-04-02] MEDS: LEVETIRACETAM 500 MG TAB PO SCH ×2 (10:43→21:12)
[2023-04-02] MEDS: CARISOPRODOL 350 MG TAB PO PRN ×2 (10:43→18:21)
[2023-04-02] MEDS: METHIMAZOLE 5 MG TAB PO SCH (11:36)
[2023-04-02] MEDS: GABAPENTIN 300 MG CAP PO SCH ×2 (14:02→21:12)
[2023-04-02] MEDS: MELOXICAM 7.5 MG TAB PO PRN (21:12)
[2023-04-03] VITALS (10 sets, daily range): BP systolic 101–150; BP diastolic 56–91; PULSE 75–117; RESP 17–20; TEMP 97.8–98.8; O2SAT 96–100
[2023-04-03] MEDS: HYDROCODONE/APAP 10MG-325MG TAB PO PRN ×5 (01:01→18:33)
[2023-04-03] MEDS: CARISOPRODOL 350 MG TAB PO PRN ×3 (01:02→17:21)
[2023-04-03] MEDS: LOSARTAN POTASSIUM 25 MG TAB PO SCH (09:25)
[2023-04-03] MEDS: PANTOPRAZOLE SOD 40 MG TABEC PO SCH (09:25)
[2023-04-03] MEDS: NICOTINE 21 MG/EA PATCH TOP SCH ×2 (09:26)
[2023-04-03] MEDS: GABAPENTIN 300 MG CAP PO SCH ×3 (09:26→22:10)
[2023-04-03] MEDS: METHIMAZOLE 5 MG TAB PO SCH (09:31)
[2023-04-03] MEDS ORDERED: ONDANSETRON HCL 4 MG ORAL DISINTEGRATING TAB PO PRN ×3 (11:45)
[2023-04-03] MEDS: LEVETIRACETAM 500 MG TAB PO SCH ×2 (11:55→22:10)
[2023-04-03] MEDS: MELOXICAM 7.5 MG TAB PO PRN (22:14)
[2023-04-04] VITALS: BP 145/79; PULSE 85; RESP 18; TEMP 98.4; O2SAT 100
[2023-04-04] MEDS: HYDROCODONE/APAP 10MG-325MG TAB PO PRN ×3 (01:43→13:04)
[2023-04-04] MEDS: CARISOPRODOL 350 MG TAB PO PRN ×2 (01:44→09:22)
[2023-04-04 04:00] VITALS: BP 123/91; PULSE 92; RESP 18; TEMP 98.1; O2SAT 100
[2023-04-04 08:30] VITALS: BP 120/88; PULSE 88; RESP 18; TEMP 98.3; O2SAT 100
[2023-04-04] MEDS: NICOTINE 21 MG/EA PATCH TOP SCH ×2 (09:00→09:23)
[2023-04-04 09:13] VITALS: BP 123/91; PULSE 92; RESP 18; TEMP 98.1; O2SAT 100
[2023-04-04 09:22] VITALS: BP 123/91
[2023-04-04] MEDS: LOSARTAN POTASSIUM 25 MG TAB PO SCH (09:22)
[2023-04-04] MEDS: GABAPENTIN 300 MG CAP PO SCH (09:23)
[2023-04-04] MEDS: PANTOPRAZOLE SOD 40 MG TABEC PO SCH (09:23)
[2023-04-04] MEDS: METHIMAZOLE 5 MG TAB PO SCH (09:23)
[2023-04-04] MEDS: LEVETIRACETAM 500 MG TAB PO SCH (10:50)
== END 2023-04-04 14:55 | disposition home or self-care (01) | DRG 690 ==
LOC: ER 13:40 → ERHOLD 14:26 → MED/SURG2 18:43
PROVIDERS: ADMIT Internal Medicine; ATTEND Internal Medicine
DX: N39.0 Urinary tract infection, site not specified (principal); Z16.12 Extended spectrum beta lactamase (ESBL) resistance; J44.9 Chronic obstructive pulmonary disease, unspecified; E03.9 Hypothyroidism, unspecified; G40.909 Epilepsy, unspecified, not intractable, without status epilepticus; F41.9 Anxiety disorder, unspecified; M54.50 Low back pain, unspecified; F17.200 Nicotine dependence, unspecified, uncomplicated; B96.20 Unspecified Escherichia coli [E. coli] as the cause of diseases classified elsewhere; F32.9 Major depressive disorder, single episode, unspecified; N32.3 Diverticulum of bladder; G62.9 Polyneuropathy, unspecified; I10 Essential (primary) hypertension; G89.4 Chronic pain syndrome; Z11.52 Encounter for screening for COVID-19; Z86.73 Personal history of transient ischemic attack (TIA), and cerebral infarction without residual deficits; Z96.659 Presence of unspecified artificial knee joint; Z98.84 Bariatric surgery status; Z88.2 Allergy status to sulfonamides
CPT/HCPCS: 36415; 80053; 85025; 87040; 99284; J2185; J2405; J2543; U0002

== ENCOUNTER 2024-05-18 16:35 | Inpatient (IN) | payer MEDICARE ==
[~2024-05-18] VITALS: Ht 160 cm; Wt 65.9 kg
[~2024-05-18 16:35] MED LIST changes: +METHIMAZOLE5 MG
[2024-05-18 17:13] LABS: BASOPHILS # (AUTO) 0.1 (0.0-0.1); BASOPHILS % 0.6 % (0.0-1.0); EOSINOPHILS # (AUTO) 0.1 (0.0-0.4); EOSINOPHILS % 0.5 % (0.0-6.0); HEMATOCRIT 36.3 % (34.2-44.1); HEMOGLOBIN 10.3 g/dL (12.0-16.0); LYMPHOCYTES % 15.1 % (18.0-39.1); MEAN CORPUSCULAR HEMOGLOBIN 29.1 pg (28-32); MEAN CORPUSCULAR HGB CONC 28.4 g/dL (31-35); MEAN CORPUSCULAR VOLUME 102.5 fL (81-99); MONOCYTES # (AUTO) 0.7 (0.2-0.8); MONOCYTES % 5.2 % (4.4-11.3); NEUTROPHILS # (AUTO) 10.1 (2.1-6.9); NEUTROPHILS % 78.1 % (38.7-80.0); PLATELET COUNT 297 x10e3/uL (140-360); RED BLOOD COUNT 3.54 x10e6/uL (3.6-5.1); WHITE BLOOD COUNT 12.96 x10e3/uL (4.8-10.8)
[2024-05-18] MEDS ORDERED: LEVETIRACETAM 1000MG/100ML IV 100 ML IV ONE (17:15)
[2024-05-18] MEDS: SODIUM CHLORIDE 0.9% 1000ML 1,000 ML IV STA (17:23)
[2024-05-18] MEDS: LEVETIRACETAM 500MG/5ML VIAL 1,000 MG in SODIUM CHLORIDE 0.9% 100 ML IV ONE (17:37)
[2024-05-18 17:38] LABS: ALBUMIN 3.4 g/dL (3.5-5.0); ALBUMIN/GLOBULIN RATIO 0.9 (0.8-2.0); ALKALINE PHOSPHATASE 120 IU/L (40-150); ANION GAP 20.8 mmol/L (8-16); BILIRUBIN,TOTAL 0.3 mg/dL (0.2-1.2); BLOOD UREA NITROGEN 35 mg/dL (7-26); BUN/CREATININE RATIO 9 (6-25); CALCIUM 8.9 mg/dL (8.4-10.2); CARBON DIOXIDE 18 mmol/L (22-29); CHLORIDE 94 mmol/L (98-107); CREATININE, SERUM 3.72 mg/dL (0.57-1.11); EST GLOMERULAR FILTRATION RATE 13 ML/MIN (>=60); GLUCOSE 95 mg/dL (74-118); POTASSIUM 3.8 mmol/L (3.5-5.1); SODIUM 129 mmol/L (136-145); TOTAL PROTEIN 7.1 g/dL (6.5-8.1)
[2024-05-18 17:40] LABS: ALANINE AMINOTRANSFERASE < 6 IU/L (0-55)
[2024-05-18] MEDS: SODIUM CHLORIDE 0.9% 1000ML 1,000 ML IV SCH (18:28)
[2024-05-18 18:42] VITALS: PULSE 77; RESP 17; TEMP 97.9
[2024-05-18 20:00] VITALS: BP 115/56; PULSE 83; RESP 19; RESP 21; TEMP 97.9; TEMP 98.3; O2SAT 100; O2SAT 96
[2024-05-18] MEDS ORDERED: MELOXICAM7.5 MG PO (21:05)
[2024-05-18] MEDS ORDERED: FOLIC ACID0.4 MG PO (21:05)
[2024-05-18] MEDS ORDERED: METHENAMINE HIPP1 GM (21:05)
[2024-05-18] MEDS ORDERED: FUROSEMIDE40 MG PO (21:05)
[2024-05-18] MEDS ORDERED: SUCRALFATE1 GM PO (21:05)
[2024-05-18 21:27] VITALS: PULSE 75; RESP 18; O2SAT 100
[2024-05-18 22:01] VITALS: BP 115/56; PULSE 83; RESP 21; TEMP 98.3; O2SAT 100
[2024-05-18 23:04] VITALS: PULSE 71; RESP 16; O2SAT 100
[2024-05-19] VITALS (9 sets, daily range): BP systolic 100–138; BP diastolic 56–70; PULSE 74–86; RESP 16–20; TEMP 97.7–98.1; O2SAT 93–100
[2024-05-19 01:10] LABS: CLARITY,URINE CLOUDY (CLEAR); COLOR,URINE YELLOW (YELLOW); GLUCOSE, URINE NEGATIVE (NEGATIVE); KETONES,URINE NEGATIVE (NEGATIVE); LEUKOCYTE ESTERASE ,URINE NEGATIVE (NEGATIVE); NITRITE,URINE NEGATIVE (NEGATIVE); PH,URINE 5.5 (5 - 7); PROTEIN,URINE DIPSTICK 2+ (NEGATIVE)
[2024-05-19 01:11] LABS: BILIRUBIN,URINE NEGATIVE (NEGATIVE); URINE UROBILINOGEN 0.2 mg/dL (0.2 - 1)
[2024-05-19 01:24] LABS: BACTERIA,URINE MODERATE /HPF; EPITHELIAL CELLS,URINE FEW /LPF; RBC,URINE 0-5 /HPF (0-5); TRANSITIONAL EPI CELLS,URINE FEW
[2024-05-19 01:25] LABS: MUCUS,URINE MANY (RARE)
[2024-05-19 05:31] LABS: BASOPHILS # (AUTO) 0.1 (0.0-0.1); BASOPHILS % 0.9 % (0.0-1.0); EOSINOPHILS # (AUTO) 0.1 (0.0-0.4); EOSINOPHILS % 1.6 % (0.0-6.0); HEMATOCRIT 26.6 % (34.2-44.1); HEMOGLOBIN 8.2 g/dL (12.0-16.0); LYMPHOCYTES # (AUTO) 2.1 (1.0-3.2); LYMPHOCYTES % 38.4 % (18.0-39.1); MEAN CORPUSCULAR HEMOGLOBIN 29.7 pg (28-32); MEAN CORPUSCULAR HGB CONC 30.8 g/dL (31-35); MEAN CORPUSCULAR VOLUME 96.4 fL (81-99); MONOCYTES # (AUTO) 0.4 (0.2-0.8); MONOCYTES % 6.8 % (4.4-11.3); NEUTROPHILS # (AUTO) 2.9 (2.1-6.9); NEUTROPHILS % 52.1 % (38.7-80.0); PLATELET COUNT 187 x10e3/uL (140-360); RED BLOOD COUNT 2.76 x10e6/uL (3.6-5.1); RED CELL DISTRIBUTION WIDTH 14.2 % (11.7-14.4); WHITE BLOOD COUNT 5.47 x10e3/uL (4.8-10.8)
[2024-05-19 06:07] LABS: ANION GAP 13.7 mmol/L (8-16); CALCIUM 7.6 mg/dL (8.4-10.2); CREATININE, SERUM 2.1 mg/dL (0.57-1.11); POTASSIUM 3.7 mmol/L (3.5-5.1)
[2024-05-19] MEDS ORDERED: ACETAMINOPHEN 325 MG TAB PO PRN (09:30)
[2024-05-19] MEDS ORDERED: DICYCLOMINE HCL 20 MG TAB PO PRN (09:30)
[2024-05-19] MEDS ORDERED: ONDANSETRON HCL INJ 2MG/ML 2ML 2 MG/ML VIAL IV PRN (09:30)
[2024-05-19] MEDS ORDERED: HYDRALAZINE HCL 20 MG/ML VIAL IV PRN (09:30)
[2024-05-19] MEDS: LEVETIRACETAM 500 MG TAB PO SCH (10:49)
[2024-05-19] MEDS: PANTOPRAZOLE SOD 40 MG TABEC PO SCH (10:49)
[2024-05-19] MEDS: METHIMAZOLE 5 MG TAB PO SCH (10:50)
[2024-05-19] MEDS: HYDROCODONE/APAP 10MG-325MG TAB PO PRN (12:04)
[2024-05-19] MEDS: GABAPENTIN 300 MG CAP PO SCH (15:39)
[2024-05-19] MEDS: CARISOPRODOL 350 MG TAB PO SCH (15:40)
[2024-05-20 04:53] VITALS: BP 110/62; PULSE 79; RESP 17; TEMP 98.2; O2SAT 100
[2024-05-20 05:48] LABS: EOSINOPHILS # (AUTO) 0.1 (0.0-0.4); EOSINOPHILS % 1.7 % (0.0-6.0); HEMATOCRIT 28.2 % (34.2-44.1); HEMOGLOBIN 8.1 g/dL (12.0-16.0); LYMPHOCYTES # (AUTO) 1.7 (1.0-3.2); LYMPHOCYTES % 41.7 % (18.0-39.1); MEAN CORPUSCULAR HEMOGLOBIN 28.8 pg (28-32); MEAN CORPUSCULAR HGB CONC 28.7 g/dL (31-35); MEAN CORPUSCULAR VOLUME 100.4 fL (81-99); MONOCYTES # (AUTO) 0.3 (0.2-0.8); NEUTROPHILS % 47.6 % (38.7-80.0); PLATELET COUNT 173 x10e3/uL (140-360); RED BLOOD COUNT 2.81 x10e6/uL (3.6-5.1); RED CELL DISTRIBUTION WIDTH 13.8 % (11.7-14.4); WHITE BLOOD COUNT 4.15 x10e3/uL (4.8-10.8)
[2024-05-20 06:21] LABS: % IRON SATURATION 34 % (15-50); ALBUMIN 2.2 g/dL (3.5-5.0); ALBUMIN/GLOBULIN RATIO 0.8 (0.8-2.0); ALKALINE PHOSPHATASE 78 IU/L (40-150); BILIRUBIN,TOTAL 0.2 mg/dL (0.2-1.2); BLOOD UREA NITROGEN 19 mg/dL (7-26); BUN/CREATININE RATIO 23 (6-25); CALCIUM 7.7 mg/dL (8.4-10.2); CARBON DIOXIDE 19 mmol/L (22-29); CHLORIDE 112 mmol/L (98-107); CREATININE, SERUM 0.82 mg/dL (0.57-1.11); EST GLOMERULAR FILTRATION RATE 81 ML/MIN (>=60); GLUCOSE 81 mg/dL (74-118); IRON 83 ug/dL (50-170); MAGNESIUM 1.8 MG/DL (1.3-2.1); PHOSPHORUS 2.3 MG/DL (2.3-4.7); SODIUM 137 mmol/L (136-145); TOTAL IRON BINDING CAPACITY 245 ug/dL (261-478); TOTAL PROTEIN 4.8 g/dL (6.5-8.1); TRANSFERRIN 175 mg/dL (180-382)
[2024-05-20 06:27] LABS: ALANINE AMINOTRANSFERASE < 6 IU/L (0-55)
[2024-05-20 06:42] LABS: THYROID STIMULATING HORMONE 0.189 uIU/mL (0.350-4.940)
[2024-05-20 06:48] LABS: FOLATE 12.1 ng/mL (7.0-15.4)
[2024-05-20 09:31] VITALS: BP 117/76; PULSE 84; RESP 20; TEMP 98.1; O2SAT 96
[2024-05-20 09:33] VITALS: BP 117/76; PULSE 84; RESP 20; TEMP 98.1; O2SAT 96
[2024-05-21 08:12] LABS: CALCIUM 7.7 mg/dL (8.7-10.3)
== END 2024-05-20 12:48 | disposition home or self-care (01) | DRG 640 ==
LOC: ER 16:50 → ERHOLD 17:57 → MED/SURG2 20:12
PROVIDERS: ADMIT Internal Medicine; ATTEND Internal Medicine
DX: E86.0 Dehydration (principal); J69.0 Pneumonitis due to inhalation of food and vomit; G40.919 Epilepsy, unspecified, intractable, without status epilepticus; E87.1 Hypo-osmolality and hyponatremia; N28.9 Disorder of kidney and ureter, unspecified; E03.9 Hypothyroidism, unspecified; J44.9 Chronic obstructive pulmonary disease, unspecified; M54.50 Low back pain, unspecified; M19.90 Unspecified osteoarthritis, unspecified site; T42.76XA Underdosing of unspecified antiepileptic and sedative-hypnotic drugs, initial encounter; Z91.138 Patient's unintentional underdosing of medication regimen for other reason; Z79.891 Long term (current) use of opiate analgesic; Z86.73 Personal history of transient ischemic attack (TIA), and cerebral infarction without residual deficits; Z98.84 Bariatric surgery status; Z88.2 Allergy status to sulfonamides; F17.200 Nicotine dependence, unspecified, uncomplicated
CPT/HCPCS: 36415; 71250; 74176; 80048; 80053; 81001; 82607; 82746; 83036; 83540; 83735; 83970; 84100; 84443; 84466; 85025; 93005; 94799; J0692; J7030; J7050

== ENCOUNTER → 2024-08-05 | Outpatient (REF) | payer MEDICARE ==
[~2024-08-05] MED LIST changes: +FOLIC ACID0.4 MG PO; +FUROSEMIDE40 MG PO; +MELOXICAM7.5 MG PO; +METHENAMINE HIPP1 GM; +SUCRALFATE1 GM PO
== END ==
LOC: MAMMO 11:03
PROVIDERS: ATTEND Internal Medicine
DX: Z12.31 Encounter for screening mammogram for malignant neoplasm of breast (principal); M47.16 Other spondylosis with myelopathy, lumbar region; M15.9 Polyosteoarthritis, unspecified
CPT/HCPCS: 72110; 77067

== ENCOUNTER 2024-09-24 16:02 | Inpatient (IN) | payer MEDICARE ==
[~2024-09-24] VITALS: Ht 162.6 cm; Wt 72.6 kg
[~2024-09-24 16:02] MED LIST changes: +ETOMIDATE 2 MG/ML 10 ML INJ IV ONE; +MIDAZOLAM HCL 2 MG/2 ML VIAL ONE; +SUCCINYLCHOLINE CHLORIDE 20 MG/ML 10ML VIAL ONE
[2024-09-24] MEDS ORDERED: SODIUM CHLORIDE 0.9% 1000ML 1,000 ML ONE (16:16)
[2024-09-24 16:30] LABS: BASOPHILS % 0.3 % (0.0-1.0); HEMATOCRIT 31.6 % (34.2-44.1); HEMOGLOBIN 9.1 g/dL (12.0-16.0); LYMPHOCYTES # (AUTO) 0.5 (1.0-3.2); LYMPHOCYTES % 14.8 % (18.0-39.1); MEAN CORPUSCULAR HEMOGLOBIN 26.7 pg (28-32); MEAN CORPUSCULAR HGB CONC 28.8 g/dL (31-35); MEAN CORPUSCULAR VOLUME 92.7 fL (81-99); MONOCYTES # (AUTO) 0.1 (0.2-0.8); MONOCYTES % 3.7 % (4.4-11.3); NEUTROPHILS # (AUTO) 2.6 (2.1-6.9); NEUTROPHILS % 80.9 % (38.7-80.0); PLATELET COUNT 165 x10e3/uL (140-360); RED BLOOD COUNT 3.41 x10e6/uL (3.6-5.1); WHITE BLOOD COUNT 3.24 x10e3/uL (4.8-10.8)
[2024-09-24] MEDS: SODIUM CHLORIDE 0.9% 1000ML 1,000 ML IV STA ×2 (16:41→16:49)
[2024-09-24] MEDS: ETOMIDATE 2 MG/ML 10 ML INJ IV STA (16:41)
[2024-09-24] MEDS: MIDAZOLAM HCL 2 MG/2 ML VIAL IV STA ×2 (16:50→21:05)
[2024-09-24 16:51] LABS: ALBUMIN 3.8 g/dL (3.5-5.0); ALBUMIN/GLOBULIN RATIO 1.1 (0.8-2.0); ALKALINE PHOSPHATASE 106 IU/L (40-150); ANION GAP 21.6 mmol/L (8-16); BILIRUBIN,TOTAL 0.7 mg/dL (0.2-1.2); BLOOD UREA NITROGEN 45 mg/dL (7-26); BUN/CREATININE RATIO 13 (6-25); CALCIUM 8.5 mg/dL (8.4-10.2); CARBON DIOXIDE 16 mmol/L (22-29); CHLORIDE 101 mmol/L (98-107); CREATININE, SERUM 3.41 mg/dL (0.57-1.11); EST GLOMERULAR FILTRATION RATE 15 ML/MIN (>=60); GLUCOSE 118 mg/dL (74-118); MAGNESIUM 1.8 MG/DL (1.3-2.1); POTASSIUM 4.6 mmol/L (3.5-5.1); SODIUM 134 mmol/L (136-145); TOTAL PROTEIN 7.3 g/dL (6.5-8.1)
[2024-09-24 16:53] LABS: ALANINE AMINOTRANSFERASE < 6 IU/L (0-55)
[2024-09-24 16:53] LABS: ABG HCO3 17 mmol/L (22-26); ABG PCO2 44 mmHg (35-45); ABG PH 7.19 (7.35-7.45); ABG PO2 80 mmHg (80-105); ABG TCO2 18
[2024-09-24 16:57] LABS: TROPONIN I 0.001 ng/mL (0-0.300)
[2024-09-24] MEDS: SUCCINYLCHOLINE 200 MG/10 ML SYR IV STA (16:58)
[2024-09-24 17:07] LABS: INR 0.95; PARTIAL THROMBOPLASTIN TIME 36.4 seconds (23.8-35.5); PROTHROMBIN TIME 13.5 seconds (11.9-14.5)
[2024-09-24 17:08] LABS: ACETAMINOPHEN < 3.0 ug/mL (10-30); ETHANOL < 10.0 mg/dL (0.0-10.0); SALICYLATE < 5.0 mg/dL (0-30)
[2024-09-24] MEDS ORDERED: NOREPINEPHRINE 8 MG/D5W 250 ML 250 ML ONE (17:08)
[2024-09-24] MEDS: LEVETIRACETAM 1000MG/100ML IV 100 ML IV ONE (17:55)
[2024-09-24] MEDS: NOREPINEPHRINE 8 MG/D5W 250 ML 250 ML IV SCH (17:55)
[2024-09-24] MEDS ORDERED: LEVETIRACETAM 500 MG/5 ML VIAL IV ONE (18:06)
[2024-09-24] MEDS ORDERED: FENTANYL CITRATE INJ 2,000 MCG in SODIUM CHLORIDE 0.9% 250ML 250 ML IV SCH (18:15)
[2024-09-24] MEDS: FENTANYL 2000MCG/NS 250 250 ML IV SCH (18:18)
[2024-09-24 18:34] LABS: BILIRUBIN,URINE NEGATIVE (NEGATIVE); CLARITY,URINE SL CLOUDY (CLEAR); COLOR,URINE ORANGE (YELLOW); GLUCOSE, URINE NEGATIVE (NEGATIVE); KETONES,URINE NEGATIVE (NEGATIVE); LEUKOCYTE ESTERASE ,URINE NEGATIVE (NEGATIVE); NITRITE,URINE POSITIVE (NEGATIVE); PH,URINE 5.5 (5 - 7); PROTEIN,URINE DIPSTICK 2+ (NEGATIVE); URINE UROBILINOGEN 0.2 mg/dL (0.2 - 1)
[2024-09-24 18:38] LABS: AMPHETAMINES SCREEN,URINE NEGATIVE (NEGATIVE); BENZODIAZEPINES SCREEN,URINE NEGATIVE (NEGATIVE); CANNABINOIDS SCREEN,URINE NEGATIVE (NEGATIVE); COCAINE SCREEN,URINE NEGATIVE (NEGATIVE); METHADONE SCREEN, URINE NEGATIVE (NEGATIVE); OPIATES SCREEN,URINE POSITIVE (NEGATIVE); PHENCYCLIDINE SCREEN,URINE NEGATIVE (NEGATIVE)
[2024-09-24 18:52] LABS: BACTERIA,URINE MANY /HPF; EPITHELIAL CELLS,URINE FEW /LPF; RBC,URINE 0-5 /HPF (0-5)
[2024-09-24 19:33] LABS: HYPOCHROMASIA SLIGHT; LYMPHOCYTES % (MANUAL) 22 % (19-48); METAMYELOCYTES % (MANUAL) 1 % (0-0); MONOCYTES % (MANUAL) 3 % (3.4-9.0); NEUTROPHILS % (MANUAL) 74 % (40-74); PLATELET ESTIMATE ADEQUATE; PLATELET MORPHOLOGY COMMENT NORMAL; RBC MORPHOLOGY COMMENT NORMAL
[2024-09-24] MEDS: Vancomycin IV 1 GM in SODIUM CHLORIDE 0.9% 250ML 250 ML IV ONE (19:36)
[2024-09-24] MEDS ORDERED: MIDAZOLAM HCL 2 MG/2 ML VIAL ONE (20:11)
[2024-09-24] MEDS ORDERED: GUAIFENESIN/DEXTROMETHORPHAN LIQD 5 ML UDC PO PRN (20:15)
[2024-09-24] MEDS ORDERED: MELATONIN 3 MG TAB PO PRN (20:15)
[2024-09-24] MEDS ORDERED: MAGNESIUM/ALUMINUM/SIMETHICONE 30 ML UDC PO PRN (20:15)
[2024-09-24] MEDS ORDERED: POLYETHYLENE GLYCOL 3350 17 GM PACK PO PRN (20:15)
[2024-09-24] MEDS ORDERED: ONDANSETRON HCL INJ 2MG/ML 2ML 2 MG/ML VIAL IV PRN (20:15)
[2024-09-24] MEDS ORDERED: PROPOFOL IV EMULSION 10MG/ML 100 ML ONE (21:50)
[2024-09-24] MEDS: PROPOFOL IV EMULSION 10MG/ML 100 ML IV SCH (21:53)
[2024-09-24] MEDS: PROPOFOL IV EMULSION 10 MG/ML 20 ML VIAL IV ONE (21:54)
[2024-09-24 22:04] VITALS: PULSE 77; RESP 24; TEMP 98.9
[2024-09-24 23:16] VITALS: BP 102/49; PULSE 80; RESP 24; O2SAT 100
[2024-09-24 23:30] VITALS: BP 104/59; PULSE 80; RESP 24; O2SAT 100
[2024-09-24 23:45] VITALS: BP 112/65; PULSE 77; RESP 24; O2SAT 100
[2024-09-25] VITALS (47 sets, daily range): BP systolic 82–157; BP diastolic 47–83; PULSE 55–97; RESP 14–31; TEMP 98–100; O2SAT 99–100
[2024-09-25] MEDS: IPRATROPIUM BROMIDE 0.02% 2.5 ML NEB NEB SCH (00:24)
[2024-09-25] MEDS: SODIUM CHLORIDE 0.9% 1000ML 1,000 ML IV SCH (00:41)
[2024-09-25] MEDS: METHYLPREDNISOLONE SOD SUCC 125 MG/2ML VIAL IV SCH ×2 (00:41→20:23)
[2024-09-25] MEDS: ALBUTEROL SULF 0.083% NEB SOLN 3 ML NEB NEB PRN (06:27)
[2024-09-25 06:42] LABS: ALANINE AMINOTRANSFERASE < 6 IU/L (0-55); ALBUMIN 2.9 g/dL (3.5-5.0); ALKALINE PHOSPHATASE 83 IU/L (40-150); ANION GAP 13.5 mmol/L (8-16); BILIRUBIN,TOTAL 0.4 mg/dL (0.2-1.2); BLOOD UREA NITROGEN 30 mg/dL (7-26); BUN/CREATININE RATIO 21 (6-25); CALCIUM 8.5 mg/dL (8.4-10.2); CARBON DIOXIDE 18 mmol/L (22-29); CHLORIDE 107 mmol/L (98-107); CREATININE, SERUM 1.41 mg/dL (0.57-1.11); EST GLOMERULAR FILTRATION RATE 42 ML/MIN (>=60); GLUCOSE 143 mg/dL (74-118); POTASSIUM 5.5 mmol/L (3.5-5.1); SODIUM 133 mmol/L (136-145); TOTAL PROTEIN 5.9 g/dL (6.5-8.1)
[2024-09-25 06:48] LABS: TROPONIN I 0.007 ng/mL (0-0.300)
[2024-09-25 07:39] LABS: HEMATOCRIT 24.8 % (34.2-44.1); LYMPHOCYTES # (AUTO) 0.8 (1.0-3.2); LYMPHOCYTES % 10.3 % (18.0-39.1); MEAN CORPUSCULAR HEMOGLOBIN 26.6 pg (28-32); MEAN CORPUSCULAR HGB CONC 29.8 g/dL (31-35); MEAN CORPUSCULAR VOLUME 89.2 fL (81-99); MONOCYTES # (AUTO) 0.4 (0.2-0.8); MONOCYTES % 5.4 % (4.4-11.3); NEUTROPHILS # (AUTO) 6.5 (2.1-6.9); NEUTROPHILS % 83.9 % (38.7-80.0); PLATELET COUNT 155 x10e3/uL (140-360); RED BLOOD COUNT 2.78 x10e6/uL (3.6-5.1); RED CELL DISTRIBUTION WIDTH 15.9 % (11.7-14.4); WHITE BLOOD COUNT 7.76 x10e3/uL (4.8-10.8)
[2024-09-25 07:46] LABS: HEMOGLOBIN 7.4 g/dL (12.0-16.0)
[2024-09-25] MEDS: DEXTROSE 50% SYRINGE 50 ML IV ONE (08:06)
[2024-09-25] MEDS: INSULIN REGULAR, HUMAN 100 UNIT/1 ML IV ONE (08:07)
[2024-09-25] MEDS: MULTIVITAMINS/MINERALS TAB PO SCH (08:07)
[2024-09-25] MEDS: FAMOTIDINE 20 MG/2 ML VIAL IV SCH (08:07)
[2024-09-25] MEDS: ENOXAPARIN 30 MG/0.3 ML SYR SC SCH (08:08)
[2024-09-25 08:20] LABS: BAND NEUTROPHILS % (MANUAL) 2 %; LYMPHOCYTES % (MANUAL) 7 % (19-48); MONOCYTES % (MANUAL) 4 % (3.4-9.0); NEUTROPHILS % (MANUAL) 87 % (40-74); PLATELET ESTIMATE ADEQUATE; PLATELET MORPHOLOGY COMMENT NORMAL; RBC MORPHOLOGY COMMENT NORMAL
[2024-09-25] MEDS ORDERED: FAMOTIDINE 20 MG/2 ML VIAL IV SCH (09:00)
[2024-09-25] MEDS: MIDAZOLAM HCL 2 MG/2 ML VIAL IV ONE (09:17)
[2024-09-25] MEDS: SODIUM BICARBONATE 8.4% VIAL 50 ML in SODIUM CHLORIDE 0.45% 1,000 ML IV ONE (09:17)
[2024-09-25] MEDS: ALBUTEROL SULF 0.083% NEB SOLN 3 ML NEB NEB SCH (13:35)
[2024-09-25 14:31] LABS: ANION GAP 13.1 mmol/L (8-16); CALCIUM 8.7 mg/dL (8.4-10.2); CREATININE, SERUM 1.08 mg/dL (0.57-1.11); POTASSIUM 5.1 mmol/L (3.5-5.1)
[2024-09-25 14:49] LABS: TROPONIN I 0.014 ng/mL (0-0.300)
[2024-09-25] MEDS: LACTATED RINGER'S 1,000 ML INJ ONE (20:23)
[2024-09-25] MEDS: PROPOFOL IV EMULSION 10MG/ML 100 ML IV PRN (22:36)
[2024-09-25] MEDS: FENTANYL 2000MCG/NS 250 250 ML IV PRN (22:38)
[2024-09-26] VITALS (75 sets, daily range): BP systolic 105–184; BP diastolic 61–168; PULSE 51–91; RESP 10–30; TEMP 96.2–98.9; O2SAT 94–100
[2024-09-26 06:02] LABS: ALBUMIN 2.6 g/dL (3.5-5.0); ALBUMIN/GLOBULIN RATIO 0.8 (0.8-2.0); ALKALINE PHOSPHATASE 76 IU/L (40-150); ANION GAP 13.9 mmol/L (8-16); BILIRUBIN,TOTAL 0.3 mg/dL (0.2-1.2); BLOOD UREA NITROGEN 23 mg/dL (7-26); BUN/CREATININE RATIO 26 (6-25); CALCIUM 8.5 mg/dL (8.4-10.2); CARBON DIOXIDE 19 mmol/L (22-29); CHLORIDE 110 mmol/L (98-107); CREATININE, SERUM 0.88 mg/dL (0.57-1.11); EST GLOMERULAR FILTRATION RATE 74 ML/MIN (>=60); GLUCOSE 136 mg/dL (74-118); POTASSIUM 4.9 mmol/L (3.5-5.1); SODIUM 138 mmol/L (136-145); TOTAL PROTEIN 5.8 g/dL (6.5-8.1)
[2024-09-26 06:10] LABS: ALANINE AMINOTRANSFERASE < 6 IU/L (0-55)
[2024-09-26 06:57] LABS: BASOPHILS % 0.2 % (0.0-1.0); LYMPHOCYTES # (AUTO) 0.5 (1.0-3.2); LYMPHOCYTES % 8.9 % (18.0-39.1); MEAN CORPUSCULAR HEMOGLOBIN 28.4 pg (28-32); MEAN CORPUSCULAR HGB CONC 30.8 g/dL (31-35); MEAN CORPUSCULAR VOLUME 92.2 fL (81-99); MONOCYTES # (AUTO) 0.3 (0.2-0.8); MONOCYTES % 5.2 % (4.4-11.3); NEUTROPHILS # (AUTO) 4.5 (2.1-6.9); NEUTROPHILS % 83.7 % (38.7-80.0); RED BLOOD COUNT 2.32 x10e6/uL (3.6-5.1); RED CELL DISTRIBUTION WIDTH 16.4 % (11.7-14.4); WHITE BLOOD COUNT 5.42 x10e3/uL (4.8-10.8)
[2024-09-26 07:03] LABS: PLATELET COUNT 122 x10e3/uL (140-360)
[2024-09-26 07:12] LABS: HEMATOCRIT 21.4 % (34.2-44.1); HEMOGLOBIN 6.6 g/dL (12.0-16.0)
[2024-09-26] MEDS: SODIUM CHLORIDE 0.9% 250ML 250 ML IV ONE (08:49)
[2024-09-26 10:45] LABS: LYMPHOCYTES % (MANUAL) 10 % (19-48); MONOCYTES % (MANUAL) 2 % (3.4-9.0); NEUTROPHILS % (MANUAL) 88 % (40-74); PLATELET ESTIMATE SLIGHTLY DECREASED; PLATELET MORPHOLOGY COMMENT NORMAL; RBC MORPHOLOGY COMMENT NORMAL
[2024-09-26] MEDS: DEXMEDETOMIDINE 400MCG/NS100ML 100 ML IV PRN (15:30)
[2024-09-26] MEDS: ZIPRASIDONE 20 MG VIAL IM ONE (16:29)
[2024-09-26] MEDS: ZIPRASIDONE 20 MG VIAL IM STA (16:29)
[2024-09-26 16:44] LABS: ABG HCO3 19 mmol/L (22-26); ABG PCO2 27 mmHg (35-45); ABG PH 7.46 (7.35-7.45); ABG PO2 186 mmHg (80-105); ABG TCO2 20
[2024-09-26] MEDS: IPRATROPIUM BROMIDE 0.02% 2.5 ML NEB NEB SCH (18:48)
[2024-09-26] MEDS: ALBUTEROL SULF 0.083% NEB SOLN 3 ML NEB NEB SCH (18:48)
[2024-09-26 20:11] LABS: ABG HCO3 19 mmol/L (22-26); ABG PCO2 31 mmHg (35-45); ABG PH 7.39 (7.35-7.45); ABG PO2 99 mmHg (80-105); ABG TCO2 20
[2024-09-26] MEDS: HYDRALAZINE HCL 20 MG/ML VIAL IV PRN (21:42)
[2024-09-26] MEDS: LORAZEPAM INJ 2 MG/ML VIAL IV PRN (22:52)
[2024-09-27] VITALS (66 sets, daily range): BP systolic 133–197; BP diastolic 75–178; PULSE 50–105; RESP 15–36; TEMP 96–97.8; O2SAT 92–100
[2024-09-27 06:55] LABS: BASOPHILS % 0.1 % (0.0-1.0); HEMATOCRIT 28.1 % (34.2-44.1); HEMOGLOBIN 8.4 g/dL (12.0-16.0); LYMPHOCYTES # (AUTO) 0.9 (1.0-3.2); LYMPHOCYTES % 9.4 % (18.0-39.1); MEAN CORPUSCULAR HEMOGLOBIN 26.9 pg (28-32); MEAN CORPUSCULAR HGB CONC 29.9 g/dL (31-35); MEAN CORPUSCULAR VOLUME 90.1 fL (81-99); MONOCYTES # (AUTO) 0.6 (0.2-0.8); MONOCYTES % 6.1 % (4.4-11.3); NEUTROPHILS # (AUTO) 8.1 (2.1-6.9); NEUTROPHILS % 83.9 % (38.7-80.0); PLATELET COUNT 118 x10e3/uL (140-360); RED BLOOD COUNT 3.12 x10e6/uL (3.6-5.1)
[2024-09-27 07:03] LABS: ANION GAP 13.5 mmol/L (8-16); BILIRUBIN,TOTAL 0.4 mg/dL (0.2-1.2); CALCIUM 8.7 mg/dL (8.4-10.2); CREATININE, SERUM 0.84 mg/dL (0.57-1.11); POTASSIUM 4.5 mmol/L (3.5-5.1); TOTAL PROTEIN 5.8 g/dL (6.5-8.1)
[2024-09-27 07:23] LABS: ALBUMIN 2.8 g/dL (3.5-5.0); ALBUMIN/GLOBULIN RATIO 0.9 (0.8-2.0)
[2024-09-27] MEDS: METHYLPREDNISOLONE SOD SUCC 40 MG/ML VIAL 1ML IV SCH (08:32)
[2024-09-27] MEDS: ZIPRASIDONE 20 MG VIAL IM STA (11:10)
[2024-09-27] MEDS ORDERED: WATER STERILE 10 ML VIAL IM SCH (11:15)
[2024-09-27] MEDS: LORAZEPAM INJ 2 MG/ML VIAL IV PRN ×2 (16:13→22:33)
[2024-09-27 16:33] LABS: FERRITIN 91.34 ng/mL (4.63-204.00)
[2024-09-27 16:37] LABS: FREE T4 (FREE THYROXINE) 0.84 ng/dL (0.8-1.8); THYROID STIMULATING HORMONE 0.186 uIU/mL (0.350-4.940)
[2024-09-27] MEDS: ZIPRASIDONE 20 MG VIAL IM ONE (17:57)
[2024-09-27] MEDS: LORAZEPAM INJ 2 MG/ML VIAL IV ONE (17:58)
[2024-09-27] MEDS: HALOPERIDOL LACTATE 5 MG/ML VIAL IM PRN (21:42)
[2024-09-28] VITALS (74 sets, daily range): BP systolic 107–196; BP diastolic 66–165; PULSE 43–113; RESP 15–35; TEMP 97.5–98.2; O2SAT 86–100
[2024-09-28 00:52] LABS: CORONAVIRUS COVID-19 AG NEGATIVE (NEGATIVE); INFLUENZA A AG NEGATIVE (NEGATIVE); INFLUENZA B AG NEGATIVE (NEGATIVE)
[2024-09-28 06:54] LABS: HEMATOCRIT 28.1 % (34.2-44.1); HEMOGLOBIN 8.7 g/dL (12.0-16.0); LYMPHOCYTES # (AUTO) 0.6 (1.0-3.2); LYMPHOCYTES % 12.2 % (18.0-39.1); MEAN CORPUSCULAR HEMOGLOBIN 26.7 pg (28-32); MEAN CORPUSCULAR VOLUME 86.2 fL (81-99); MONOCYTES # (AUTO) 0.4 (0.2-0.8); NEUTROPHILS # (AUTO) 3.8 (2.1-6.9); NEUTROPHILS % 79.2 % (38.7-80.0); PLATELET COUNT 101 x10e3/uL (140-360); RED BLOOD COUNT 3.26 x10e6/uL (3.6-5.1); RED CELL DISTRIBUTION WIDTH 16.2 % (11.7-14.4); WHITE BLOOD COUNT 4.75 x10e3/uL (4.8-10.8)
[2024-09-28 07:20] LABS: ANION GAP 15.1 mmol/L (8-16); BILIRUBIN,TOTAL 0.5 mg/dL (0.2-1.2); CALCIUM 8.4 mg/dL (8.4-10.2); CREATININE, SERUM 0.78 mg/dL (0.57-1.11); POTASSIUM 4.1 mmol/L (3.5-5.1); TOTAL PROTEIN 5.6 g/dL (6.5-8.1)
[2024-09-28 07:34] LABS: ALBUMIN 2.8 g/dL (3.5-5.0)
[2024-09-28] MEDS: ZIPRASIDONE 20 MG VIAL IM STA (07:44)
[2024-09-28] MEDS: LACTATED RINGER'S 1,000 ML INJ ONE (08:25)
[2024-09-28] MEDS: LORAZEPAM INJ 2 MG/ML VIAL IV ONE (08:26)
[2024-09-28] MEDS: METHYLPREDNISOLONE SOD SUCC 40 MG/ML VIAL 1ML IV SCH (08:30)
[2024-09-28 10:26] LABS: HIV 1&2 AB SCREEN NON-REACTIVE (NONREACTIVE); HIV- 1 P24 AG SCREEN NON-REACTIVE (NONREACTIVE)
[2024-09-28] MEDS ORDERED: LORAZEPAM INJ 2 MG/ML VIAL IV ONE (15:00)
[2024-09-28] MEDS: Ampicillin INJ 2 GM in SODIUM CHLORIDE 0.9% 100 ML IV SCH (17:26)
[2024-09-28] MEDS: CEFTRIAXONE 2 GM in SODIUM CHLORIDE 0.9% 100 ML IV SCH (19:48)
[2024-09-28] MEDS: ACETAMINOPHEN 1000 MG/100 ML IV STA (20:52)
[2024-09-28] MEDS ORDERED: ULTRAM 50MG50 MG PO (21:51)
[2024-09-28] MEDS: ACYCLOVIR SODIUM INJ 750 MG in SODIUM CHLORIDE 0.9% 250ML 250 ML IV SCH (21:54)
[2024-09-29] VITALS (76 sets, daily range): BP systolic 81–178; BP diastolic 60–139; PULSE 44–170; RESP 13–32; TEMP 96.1–98.4; O2SAT 91–100
[2024-09-29] MEDS: ZIPRASIDONE 20 MG VIAL IM ONE (11:21)
[2024-09-29] MEDS ORDERED: VALPROATE SOD IV SCH (12:00)
[2024-09-29] MEDS ORDERED: SODIUM CHLORIDE 0.9% IV SCH (12:00)
[2024-09-29] MEDS: LORAZEPAM INJ 2 MG/ML VIAL IV ONE (12:24)
[2024-09-29] MEDS: VALPROATE SOD IV STA (14:21)
[2024-09-29] MEDS: SODIUM CHLORIDE 0.9% IV STA (14:21)
[2024-09-29 14:34] LABS: HEMATOCRIT 29.4 % (34.2-44.1); LYMPHOCYTES # (AUTO) 0.8 (1.0-3.2); LYMPHOCYTES % 25.7 % (18.0-39.1); MEAN CORPUSCULAR HEMOGLOBIN 26.8 pg (28-32); MEAN CORPUSCULAR HGB CONC 30.6 g/dL (31-35); MEAN CORPUSCULAR VOLUME 87.5 fL (81-99); MONOCYTES # (AUTO) 0.2 (0.2-0.8); MONOCYTES % 6.8 % (4.4-11.3); NEUTROPHILS # (AUTO) 1.9 (2.1-6.9); NEUTROPHILS % 65.8 % (38.7-80.0); PLATELET COUNT 107 x10e3/uL (140-360); RED BLOOD COUNT 3.36 x10e6/uL (3.6-5.1); WHITE BLOOD COUNT 2.92 x10e3/uL (4.8-10.8)
[2024-09-29] MEDS: AMIODARONE HCL 150 MG/100 ML BAG IV ONE (14:43)
[2024-09-29] MEDS: AMIODARONE 900MG 500 ML IV SCH (14:49)
[2024-09-29] MEDS: VASOPRESSIN 60 UNIT in DEXTROSE 5% 50ML 57 ML IV SCH (15:02)
[2024-09-29 15:03] LABS: ALBUMIN 2.8 g/dL (3.5-5.0); ALBUMIN/GLOBULIN RATIO 1.1 (0.8-2.0); ANION GAP 20.7 mmol/L (8-16); BILIRUBIN,TOTAL 0.4 mg/dL (0.2-1.2); CREATININE, SERUM 0.75 mg/dL (0.57-1.11); POTASSIUM 3.7 mmol/L (3.5-5.1); TOTAL PROTEIN 5.4 g/dL (6.5-8.1)
[2024-09-29] MEDS ORDERED: IOPAMIDOL 370 MG/ML 100 ML INFUS..BTL INJ ONE (15:07)
[2024-09-29] MEDS ORDERED: SODIUM BICARBONATE 8.4% SYRING 50 ML in SODIUM CHLORIDE 0.45% 1,000 ML IV ONE (15:30)
[2024-09-29 16:19] LABS: TOTAL PROTEIN,CSF 31.4 mg/dL (15-40)
[2024-09-29] MEDS: SODIUM BICARBONATE 8.4% VIAL 50 ML in SODIUM CHLORIDE 0.45% 1,000 ML IV ONE (17:49)
[2024-09-29] MEDS: VALPROATE SOD IV SCH (18:14)
[2024-09-29] MEDS: SODIUM CHLORIDE 0.9% IV SCH (18:14)
[2024-09-29 18:26] LABS: APPEARANCE,CSF CLEAR (CLEAR); COLOR,CSF COLORLESS (COLORLESS); TUBE NUMBER 3; WHITE BLOOD CELL,CSF 1 cells/uL (0-5)
[2024-09-29 18:28] LABS: RED BLOOD CELL,CSF 9 cells/uL (0-10)
[2024-09-29] MEDS: CENTRAL TPN FORMULA 1 BAG IV SCH (21:04)
[2024-09-29] MEDS: FENTANYL CITRATE/PF 100MCG/2 ML INJ ONE (22:27)
[2024-09-29] MEDS: MIDAZOLAM HCL 2 MG/2 ML VIAL ONE (22:27)
[2024-09-30] VITALS (68 sets, daily range): BP systolic 91–185; BP diastolic 39–136; PULSE 59–128; RESP 15–46; TEMP 96.8–98.9; O2SAT 88–100
[2024-09-30] MEDS ORDERED: DEXTROSE 5%/0.45% SOD CHL 1,000 ML IV PRN (02:30)
[2024-09-30 07:45] LABS: EOSINOPHILS % 0.5 % (0.0-6.0); HEMATOCRIT 28.8 % (34.2-44.1); LYMPHOCYTES # (AUTO) 0.5 (1.0-3.2); LYMPHOCYTES % 24.2 % (18.0-39.1); MEAN CORPUSCULAR HEMOGLOBIN 26.9 pg (28-32); MEAN CORPUSCULAR HGB CONC 31.3 g/dL (31-35); MEAN CORPUSCULAR VOLUME 86.2 fL (81-99); MONOCYTES # (AUTO) 0.4 (0.2-0.8); MONOCYTES % 16.3 % (4.4-11.3); NEUTROPHILS # (AUTO) 1.2 (2.1-6.9); NEUTROPHILS % 57.1 % (38.7-80.0); RED BLOOD COUNT 3.34 x10e6/uL (3.6-5.1); RED CELL DISTRIBUTION WIDTH 16.2 % (11.7-14.4); WHITE BLOOD COUNT 2.15 x10e3/uL (4.8-10.8)
[2024-09-30 07:48] LABS: PLATELET COUNT 90 x10e3/uL (140-360)
[2024-09-30 08:09] LABS: ALBUMIN/GLOBULIN RATIO 1.1 (0.8-2.0); ANION GAP 16.3 mmol/L (8-16); BILIRUBIN,TOTAL 0.3 mg/dL (0.2-1.2); CALCIUM 7.9 mg/dL (8.4-10.2); CREATININE, SERUM 0.79 mg/dL (0.57-1.11); TOTAL PROTEIN 5.7 g/dL (6.5-8.1)
[2024-09-30 08:10] LABS: POTASSIUM 3.3 mmol/L (3.5-5.1)
[2024-09-30 09:45] LABS: LYMPHOCYTES % (MANUAL) 27 % (19-48); MONOCYTES % (MANUAL) 11 % (3.4-9.0); NEUTROPHILS % (MANUAL) 62 % (40-74)
[2024-09-30 09:47] LABS: PLATELET ESTIMATE MODERATELY DECREASED; PLATELET MORPHOLOGY COMMENT NORMAL
[2024-09-30 09:48] LABS: HYPOCHROMASIA SLIGHT
[2024-09-30] MEDS: RIVASTIGMINE TRANSDERMAL 9.5MG/24HOURS PATCH TD SCH (10:15)
[2024-09-30] MEDS: METHYLPREDNISOLONE SOD SUCC 40 MG/ML VIAL 1ML IV SCH (10:18)
[2024-09-30] MEDS: OLANZAPINE 5 MG TAB PO SCH (10:18)
[2024-09-30] MEDS: CENTRAL TPN FORMULA 1 BAG IV SCH (20:50)
[2024-10-01] VITALS (38 sets, daily range): BP systolic 104–196; BP diastolic 57–170; PULSE 58–101; RESP 15–37; TEMP 96.8–98.2; O2SAT 94–100
[2024-10-01 05:22] LABS: MYCOPLASMA PNEUMO IGG <100 U/mL (0-99); MYCOPLASMA PNEUMO IGM <770 U/mL (0-769)
[2024-10-01 07:33] LABS: ABG HCO3 19 mmol/L (22-26); ABG PCO2 44 mmHg (35-45); ABG PH 7.23 (7.35-7.45); ABG PO2 37 mmHg (80-105); ABG TCO2 20
[2024-10-01 07:33] LABS: ABG HCO3 17 mmol/L (22-26); ABG PCO2 44 mmHg (35-45); ABG PH 7.19 (7.35-7.45); ABG PO2 80 mmHg (80-105); ABG TCO2 18
[2024-10-01 07:34] LABS: ABG HCO3 19 mmol/L (22-26); ABG PCO2 27 mmHg (35-45); ABG PH 7.46 (7.35-7.45); ABG PO2 186 mmHg (80-105); ABG TCO2 20
[2024-10-01 07:48] LABS: EOSINOPHILS % 0.3 % (0.0-6.0); HEMATOCRIT 26.7 % (34.2-44.1); HEMOGLOBIN 8.3 g/dL (12.0-16.0); LYMPHOCYTES # (AUTO) 1.6 (1.0-3.2); LYMPHOCYTES % 41.1 % (18.0-39.1); MEAN CORPUSCULAR HEMOGLOBIN 26.5 pg (28-32); MEAN CORPUSCULAR HGB CONC 31.1 g/dL (31-35); MEAN CORPUSCULAR VOLUME 85.3 fL (81-99); MONOCYTES # (AUTO) 0.5 (0.2-0.8); MONOCYTES % 11.9 % (4.4-11.3); NEUTROPHILS # (AUTO) 1.7 (2.1-6.9); NEUTROPHILS % 44.8 % (38.7-80.0); PLATELET COUNT 89 x10e3/uL (140-360); RED BLOOD COUNT 3.13 x10e6/uL (3.6-5.1); RED CELL DISTRIBUTION WIDTH 16.5 % (11.7-14.4); WHITE BLOOD COUNT 3.77 x10e3/uL (4.8-10.8)
[2024-10-01 07:54] LABS: ALBUMIN 2.9 g/dL (3.5-5.0); ALBUMIN/GLOBULIN RATIO 1.2 (0.8-2.0); BILIRUBIN,TOTAL 0.4 mg/dL (0.2-1.2); CREATININE, SERUM 0.64 mg/dL (0.57-1.11); TOTAL PROTEIN 5.3 g/dL (6.5-8.1)
[2024-10-01 08:18] LABS: LYMPHOCYTES % (MANUAL) 39 % (19-48); MONOCYTES % (MANUAL) 6 % (3.4-9.0); NEUTROPHILS % (MANUAL) 54 % (40-74); REACTIVE LYMPHOCYTES 1
[2024-10-01 08:19] LABS: ANISOCYTOSIS SLIGHT; HYPOCHROMASIA SLIGHT; PLATELET ESTIMATE MODERATELY DECREASED; PLATELET MORPHOLOGY COMMENT NORMAL
[2024-10-01 09:12] LABS: HSV 1 BY PCR Negative (Negative)
[2024-10-01 09:38] LABS: HSV 2 BY PCR Negative (Negative)
[2024-10-01] MEDS: POTASSIUM CHLORIDE 20MEQ/100ML 100 ML IV SCH (10:33)
[2024-10-01 12:12] LABS: WEST NILE VIRUS IGG CSF Negative (Negative)
[2024-10-01 12:13] LABS: WEST NILE VIRUS IGM CSF Negative (Negative)
[2024-10-01] MEDS: ZIPRASIDONE 20 MG VIAL IM ONE (13:10)
[2024-10-01 14:12] LABS: IGG/ALB RATIO CSF 0.16 (0.00-0.25); SYNTHESIS RATE IGG CSF 2.1 mg/day (-9.9 TO +3.3)
[2024-10-01 15:15] LABS: CSF/SERUM ALBUMIN INDEX 5 (0-8)
[2024-10-01] MEDS: ALTEPLASE RECOMBINANT 2 MG/2 ML VIAL IV PRN (17:07)
[2024-10-01] MEDS ORDERED: WATER STERILE 10 ML VIAL INJ PRN (17:15)
[2024-10-01] MEDS: CENTRAL TPN FORMULA 1 BAG IV SCH (19:19)
[2024-10-02] VITALS (30 sets, daily range): BP systolic 131–183; BP diastolic 51–146; PULSE 60–105; RESP 14–41; TEMP 98.5–99.3; O2SAT 91–100
[2024-10-02 06:34] LABS: LYME PCR CSF Negative (Negative)
[2024-10-02 06:46] LABS: EOSINOPHILS % 0.8 % (0.0-6.0); HEMATOCRIT 26.1 % (34.2-44.1); HEMOGLOBIN 8.1 g/dL (12.0-16.0); LYMPHOCYTES # (AUTO) 1.1 (1.0-3.2); LYMPHOCYTES % 29.3 % (18.0-39.1); MEAN CORPUSCULAR HEMOGLOBIN 26.6 pg (28-32); MEAN CORPUSCULAR VOLUME 85.9 fL (81-99); MONOCYTES # (AUTO) 0.4 (0.2-0.8); MONOCYTES % 9.9 % (4.4-11.3); NEUTROPHILS # (AUTO) 2.1 (2.1-6.9); PLATELET COUNT 79 x10e3/uL (140-360); RED BLOOD COUNT 3.04 x10e6/uL (3.6-5.1); RED CELL DISTRIBUTION WIDTH 17.1 % (11.7-14.4); WHITE BLOOD COUNT 3.62 x10e3/uL (4.8-10.8)
[2024-10-02 07:25] LABS: ALBUMIN 2.6 g/dL (3.5-5.0); ALBUMIN/GLOBULIN RATIO 1.1 (0.8-2.0); BILIRUBIN,TOTAL 0.5 mg/dL (0.2-1.2); CALCIUM 7.9 mg/dL (8.4-10.2); CREATININE, SERUM 0.56 mg/dL (0.57-1.11); TOTAL PROTEIN 4.9 g/dL (6.5-8.1)
[2024-10-02] MEDS: DEXMEDETOMIDINE 400MCG/NS100ML 100 ML IV PRN (08:11)
[2024-10-02] MEDS: CENTRAL TPN FORMULA 1 BAG IV SCH (08:50)
[2024-10-02] MEDS: POTASSIUM CHLORIDE 20MEQ/100ML 100 ML IV SCH (09:10)
[2024-10-02 09:54] LABS: ABG HCO3 19 mmol/L (22-26); ABG PCO2 31 mmHg (35-45); ABG PH 7.39 (7.35-7.45); ABG PO2 99 mmHg (80-105); ABG TCO2 20
[2024-10-02] MEDS: ACETAMINOPHEN 325 MG TAB PO PRN (13:01)
[2024-10-02 13:12] LABS: WEST NILE VIRUS IGG SERUM Negative (Negative)
[2024-10-02 16:31] LABS: VDRL CSF Non Reactive (Non Rea:<1:1)
[2024-10-02 16:31] LABS: WEST NILE VIRUS IGM SERUM Negative (Negative)
[2024-10-03] VITALS (49 sets, daily range): BP systolic 116–175; BP diastolic 80–123; PULSE 92–123; RESP 20–40; TEMP 99–99.6; O2SAT 91–100
[2024-10-03] MEDS: IPRATROPIUM BROMIDE 0.02% 2.5 ML NEB NEB PRN (01:12)
[2024-10-03] MEDS: ALBUTEROL SULF 0.083% NEB SOLN 3 ML NEB NEB PRN (01:13)
[2024-10-03 06:39] LABS: BASOPHILS % 0.1 % (0.0-1.0); EOSINOPHILS % 0.1 % (0.0-6.0); HEMATOCRIT 29.9 % (34.2-44.1); HEMOGLOBIN 9.2 g/dL (12.0-16.0); LYMPHOCYTES # (AUTO) 1.8 (1.0-3.2); LYMPHOCYTES % 22.3 % (18.0-39.1); MEAN CORPUSCULAR HEMOGLOBIN 27.3 pg (28-32); MEAN CORPUSCULAR HGB CONC 30.8 g/dL (31-35); MEAN CORPUSCULAR VOLUME 88.7 fL (81-99); MONOCYTES # (AUTO) 0.6 (0.2-0.8); MONOCYTES % 7.4 % (4.4-11.3); NEUTROPHILS # (AUTO) 5.4 (2.1-6.9); NEUTROPHILS % 67.7 % (38.7-80.0); PLATELET COUNT 100 x10e3/uL (140-360); RED BLOOD COUNT 3.37 x10e6/uL (3.6-5.1); RED CELL DISTRIBUTION WIDTH 17.6 % (11.7-14.4); WHITE BLOOD COUNT 7.99 x10e3/uL (4.8-10.8)
[2024-10-03 07:11] LABS: ALBUMIN 2.7 g/dL (3.5-5.0); ANION GAP 15.2 mmol/L (8-16); BILIRUBIN,TOTAL 0.6 mg/dL (0.2-1.2); CALCIUM 8.2 mg/dL (8.4-10.2); CREATININE, SERUM 0.69 mg/dL (0.57-1.11); POTASSIUM 3.2 mmol/L (3.5-5.1); TOTAL PROTEIN 5.5 g/dL (6.5-8.1)
[2024-10-03] MEDS: POTASSIUM CHLORIDE 20MEQ/100ML 100 ML IV SCH (09:41)
[2024-10-03] MEDS: LORAZEPAM INJ 2 MG/ML VIAL IV ONE (13:04)
[2024-10-03] MEDS: LOPERAMIDE HCL 2 MG CAP PO PRN (13:04)
[2024-10-03] MEDS: LOPERAMIDE HCL 2 MG CAP ONE (13:51)
[2024-10-03] MEDS: TRAZODONE HCL 50 MG TAB PO SCH (19:59)
[2024-10-03] MEDS: MELATONIN 5 MG TABLET PO SCH (20:00)
[2024-10-04] VITALS (25 sets, daily range): BP systolic 114–182; BP diastolic 62–139; PULSE 97–121; RESP 19–38; TEMP 97.8–99; O2SAT 94–100
[2024-10-05] VITALS (18 sets, daily range): BP systolic 120–160; BP diastolic 60–96; PULSE 84–168; RESP 13–31; TEMP 97.7–98.1; O2SAT 93–100
[2024-10-05] MEDS ORDERED: OLANZAPINE 5 MG TAB PO SCH (09:00)
[2024-10-05] MEDS: LEVETIRACETAM 500 MG TAB PO SCH (11:01)
[2024-10-05 12:21] LABS: EOSINOPHILS # (AUTO) 0.1 (0.0-0.4); EOSINOPHILS % 1.6 % (0.0-6.0); HEMATOCRIT 27.1 % (34.2-44.1); HEMOGLOBIN 8.4 g/dL (12.0-16.0); LYMPHOCYTES # (AUTO) 1.3 (1.0-3.2); LYMPHOCYTES % 24.2 % (18.0-39.1); MEAN CORPUSCULAR HEMOGLOBIN 27.6 pg (28-32); MEAN CORPUSCULAR VOLUME 89.1 fL (81-99); MONOCYTES # (AUTO) 0.7 (0.2-0.8); MONOCYTES % 13.6 % (4.4-11.3); NEUTROPHILS % 58.5 % (38.7-80.0); PLATELET COUNT 98 x10e3/uL (140-360); RED BLOOD COUNT 3.04 x10e6/uL (3.6-5.1); RED CELL DISTRIBUTION WIDTH 18.3 % (11.7-14.4); WHITE BLOOD COUNT 5.16 x10e3/uL (4.8-10.8)
[2024-10-05 12:43] LABS: CALCIUM 8.4 mg/dL (8.4-10.2); CREATININE, SERUM 0.7 mg/dL (0.57-1.11)
[2024-10-05 12:56] LABS: MAGNESIUM 1.6 MG/DL (1.3-2.1); PHOSPHORUS 3.4 MG/DL (2.3-4.7)
[2024-10-05] MEDS: METHIMAZOLE 5 MG TAB PO SCH (14:26)
[2024-10-05] MEDS: DIVALPROEX SODIUM 250 MG TAB...DR PO SCH (17:45)
[2024-10-06] VITALS (15 sets, daily range): BP systolic 137–166; BP diastolic 68–132; PULSE 84–104; RESP 16–24; TEMP 97.7–98.2; O2SAT 96–100
[2024-10-06 05:41] LABS: BASOPHILS % 0.2 % (0.0-1.0); EOSINOPHILS # (AUTO) 0.1 (0.0-0.4); EOSINOPHILS % 1.4 % (0.0-6.0); HEMATOCRIT 26.2 % (34.2-44.1); LYMPHOCYTES # (AUTO) 1.5 (1.0-3.2); LYMPHOCYTES % 22.4 % (18.0-39.1); MEAN CORPUSCULAR HEMOGLOBIN 27.8 pg (28-32); MEAN CORPUSCULAR HGB CONC 30.2 g/dL (31-35); MONOCYTES # (AUTO) 0.8 (0.2-0.8); MONOCYTES % 11.9 % (4.4-11.3); NEUTROPHILS % 61.6 % (38.7-80.0); RED BLOOD COUNT 2.84 x10e6/uL (3.6-5.1); RED CELL DISTRIBUTION WIDTH 18.2 % (11.7-14.4); WHITE BLOOD COUNT 6.46 x10e3/uL (4.8-10.8)
[2024-10-06 05:47] LABS: HEMOGLOBIN 7.9 g/dL (12.0-16.0); MEAN CORPUSCULAR VOLUME 92.3 fL (81-99); PLATELET COUNT 94 x10e3/uL (140-360)
[2024-10-06 06:07] LABS: CALCIUM 8.1 mg/dL (8.4-10.2); CREATININE, SERUM 0.67 mg/dL (0.57-1.11)
[2024-10-06 06:38] LABS: MAGNESIUM 1.6 MG/DL (1.3-2.1); PHOSPHORUS 3.9 MG/DL (2.3-4.7)
[2024-10-06] MEDS: THIAMINE HCL 100 MG TAB PO SCH (09:06)
[2024-10-06] MEDS: METOPROLOL TARTRATE 25 MG TAB PO SCH (10:39)
== END 2024-10-06 12:15 | disposition home or self-care (01) | DRG 871 ==
LOC: ER 16:24 → ERHOLD 18:09 → ICU 23:03
PROVIDERS: ADMIT Internal Medicine; ATTEND Internal Medicine
PROC: 4A033B1 Measurement of Arterial Pressure, Peripheral, Percutaneous Approach (ICD-10-PCS; principal; 2024-09-24)
PROC: 5A09357 Assistance with Respiratory Ventilation, Less than 24 Consecutive Hours, Continuous Positive Airway Pressure (ICD-10-PCS; 2024-09-24)
PROC: 0D9670Z Drainage of Stomach with Drainage Device, Via Natural or Artificial Opening (ICD-10-PCS; 2024-09-24)
PROC: 0T9B70Z Drainage of Bladder with Drainage Device, Via Natural or Artificial Opening (ICD-10-PCS; 2024-09-24)
PROC: 0BH17EZ Insertion of Endotracheal Airway into Trachea, Via Natural or Artificial Opening (ICD-10-PCS; 2024-09-24)
PROC: 5A1945Z Respiratory Ventilation, 24-96 Consecutive Hours (ICD-10-PCS; 2024-09-24)
PROC: 3E0336Z Introduction of Nutritional Substance into Peripheral Vein, Percutaneous Approach (ICD-10-PCS; 2024-09-25)
PROC: 02HV33Z Insertion of Infusion Device into Superior Vena Cava, Percutaneous Approach (ICD-10-PCS; 2024-09-25)
PROC: 30273N1 Transfusion of Nonautologous Red Blood Cells into Products of Conception, Circulatory, Percutaneous Approach (ICD-10-PCS; 2024-09-26)
PROC: 009U3ZX Drainage of Spinal Canal, Percutaneous Approach, Diagnostic (ICD-10-PCS; 2024-09-29)
PROC: B01B0ZZ Fluoroscopy of Spinal Cord using High Osmolar Contrast (ICD-10-PCS; 2024-09-29)
DX: A41.9 Sepsis, unspecified organism (principal); G92.8 Other toxic encephalopathy; J18.9 Pneumonia, unspecified organism; J96.01 Acute respiratory failure with hypoxia; R65.21 Severe sepsis with septic shock; N17.0 Acute kidney failure with tubular necrosis; J69.0 Pneumonitis due to inhalation of food and vomit; J44.1 Chronic obstructive pulmonary disease with (acute) exacerbation; N39.0 Urinary tract infection, site not specified; E87.20 Acidosis, unspecified; F19.921 Other psychoactive substance use, unspecified with intoxication with delirium; E44.0 Moderate protein-calorie malnutrition; D72.819 Decreased white blood cell count, unspecified; D63.8 Anemia in other chronic diseases classified elsewhere; I10 Essential (primary) hypertension; G40.909 Epilepsy, unspecified, not intractable, without status epilepticus; M19.90 Unspecified osteoarthritis, unspecified site; M54.50 Low back pain, unspecified; G89.29 Other chronic pain; Z96.653 Presence of artificial knee joint, bilateral; R63.4 Abnormal weight loss; E78.5 Hyperlipidemia, unspecified; G31.9 Degenerative disease of nervous system, unspecified; F02.80 Dementia in other diseases classified elsewhere, unspecified severity, without behavioral disturbance, psychotic disturbance, mood disturbance, and anxiety; B96.1 Klebsiella pneumoniae [K. pneumoniae] as the cause of diseases classified elsewhere; D69.6 Thrombocytopenia, unspecified; Z72.0 Tobacco use; R53.81 Other malaise; S20.219A Contusion of unspecified front wall of thorax, initial encounter; W18.30XA Fall on same level, unspecified, initial encounter; Y92.239 Unspecified place in hospital as the place of occurrence of the external cause; E86.0 Dehydration; E87.8 Other disorders of electrolyte and fluid balance, not elsewhere classified; F41.9 Anxiety disorder, unspecified; F32.9 Major depressive disorder, single episode, unspecified; G47.33 Obstructive sleep apnea (adult) (pediatric); Z11.52 Encounter for screening for COVID-19; Z88.2 Allergy status to sulfonamides; Z79.891 Long term (current) use of opiate analgesic; Z98.84 Bariatric surgery status; Z68.26 Body mass index [BMI] 26.0-26.9, adult
CPT/HCPCS: 31500; 36415; 36555; 36569; 36600; 51700; 62328; 70450; 70551; 71045; 71260; 74470; 76770; 80048; 80053; 80307; 80320; 80329; 81001; 82040; 82140; 82550; 82607; 82728; 82784; 82805; 82945; 83010; 83540; 83605; 83615; 83735; 83880; 83916; 84100; 84157; 84439; 84443; 84466; 84484; 85025; 85610; 85730; 86022; 86592; 86738; 86789; 86850; 86900; 86920; 87040; 87086; 87186; 87390; 87449; 87476; 87529; 89051; 93005; 93306; 94002; 94003; 94640; 94799; 95822; 99152; 99252; G0433; G0435; J0330; J0360; J0696; J1308; J1630; J1650; J2060; J2250; J2470; J2543; J2919; J2997; J3411; J3480; J3486; J7030; J7050; J7799; P9016; Q9967

== ENCOUNTER 2025-01-24 03:07 | Inpatient (IN) | payer MEDICARE ==
[~2025-01-24] VITALS: Ht 315 cm; Wt 77.1 kg
[2025-01-24] VITALS (15 sets, daily range): BP systolic 50–109; BP diastolic 20–65; PULSE 105–127; RESP 21–32; TEMP 96.7–97.3; O2SAT 86–100
[~2025-01-24 03:07] MED LIST changes: -ETOMIDATE 2 MG/ML 10 ML INJ IV ONE; -MIDAZOLAM HCL 2 MG/2 ML VIAL ONE; -SUCCINYLCHOLINE CHLORIDE 20 MG/ML 10ML VIAL ONE; +ULTRAM 50MG50 MG PO
[2025-01-24] MEDS ORDERED: MIDAZOLAM HCL 2 MG/2 ML VIAL ONE ×2 (03:43→03:51)
[2025-01-24] MEDS: SODIUM CHLORIDE 0.9% 1000ML 1,000 ML IV ONE ×2 (03:45→05:05)
[2025-01-24] MEDS ORDERED: NOREPINEPHRINE 8 MG/D5W 250 ML 250 ML ONE (04:02)
[2025-01-24 04:11] LABS: BASOPHILS % 0.9 % (0.0-1.0); EOSINOPHILS % 0.0 % (0.0-6.0); LYMPHOCYTES % 41.0 % (18.0-39.1); MONOCYTES % 2.6 % (4.4-11.3); NEUTROPHILS % 55.5 % (38.7-80.0); RED CELL DISTRIBUTION WIDTH 16.1 % (11.7-14.4)
[2025-01-24] MEDS: NOREPINEPHRINE 8 MG/D5W 250 ML 250 ML IV SCH (04:15)
[2025-01-24 04:16] LABS: INR 1.11
[2025-01-24 04:25] LABS: EST GLOMERULAR FILTRATION RATE 17.0 ML/MIN (>=60)
[2025-01-24 04:34] LABS: CORONAVIRUS COVID-19 AG NEGATIVE (NEGATIVE)
[2025-01-24] MEDS: PROPOFOL IV EMULSION 10MG/ML 100 ML IV SCH (05:12)
[2025-01-24 05:13] LABS: ABG PH 7.23 (7.35-7.45)
[2025-01-24 05:14] LABS: ABG BASE EXCESS -12.0 mmol/L (-2 - 3); ABG HCO3 16 mmol/L (22-26); ABG OXYGEN SATURATION 99.0 % (95-98); ABG PCO2 38 mmHg (35-45); ABG PO2 144 mmHg (80-105); ABG TCO2 17
[2025-01-24] MEDS: MIDAZOLAM HCL 2 MG/2 ML VIAL IV STA ×2 (05:16→05:17)
[2025-01-24] MEDS: SODIUM CHLORIDE 0.9% 500ML 500 ML IV ONE (05:24)
[2025-01-24] MEDS: SODIUM CHLORIDE 0.9% 1000ML 1,000 ML IV SCH (06:14)
[2025-01-24] MEDS ORDERED: MIDAZOLAM HCL 5MG/ML 2ML VIAL IV PRN (06:15)
[2025-01-24] MEDS: ETOMIDATE 2 MG/ML 10 ML INJ IV STA (06:17)
[2025-01-24] MEDS: SUCCINYLCHOLINE CHLORIDE 20 MG/ML 10ML VIAL IV STA (06:17)
[2025-01-24] MEDS ORDERED: PROPOFOL IV EMULSION 10MG/ML 100 ML ONE (06:30)
[2025-01-24] MEDS: IPRATROPIUM BROMIDE 0.02% 2.5 ML NEB NEB SCH (07:08)
[2025-01-24] MEDS: ALBUTEROL SULF 0.083% NEB SOLN 3 ML NEB NEB SCH (07:08)
[2025-01-24 07:16] LABS: LEUKOCYTE ESTERASE ,URINE NEGATIVE (NEGATIVE); PROTEIN,URINE DIPSTICK NEGATIVE (NEGATIVE); URINE UROBILINOGEN 0.2 mg/dL (0.2 - 1)
[2025-01-24 07:17] LABS: EPITHELIAL CELLS,URINE FEW /LPF; WBC,URINE (MAN) 0-5 /HPF (0-5)
[2025-01-24] MEDS ORDERED: MIDAZOLAM HCL 5MG/ML 10ML VIAL 100 ML IV PRN (07:30)
[2025-01-24] MEDS ORDERED: ALBUTEROL/IPRATROPIUM 3 ML NEB NEB PRN (07:45)
[2025-01-24] MEDS: LEVETIRACETAM 500 MG TAB PO SCH (08:00)
[2025-01-24] MEDS ORDERED: SODIUM BICARBONATE 8.4% SYRING 50 ML in SODIUM CHLORIDE 0.45% 1,000 ML IV ONE (08:00)
[2025-01-24] MEDS: FENTANYL 2000MCG/NS 250 250 ML IV PRN (08:55)
[2025-01-24] MEDS: FENTANYL 2000MCG/NS 250 250 ML ONE (08:55)
[2025-01-24] MEDS: PANTOPRAZOLE SOD 40 MG TABEC PO SCH (09:00)
[2025-01-24] MEDS: MIDAZOLAM HCL 2 MG/2 ML VIAL IV ONE (09:30)
[2025-01-24] MEDS: SODIUM CHLORIDE 0.9% 1000ML 1,000 ML ONE ×2 (09:51→14:07)
[2025-01-24] MEDS: SODIUM BICARBONATE 8.4% VIAL 150 ML in DEXTROSE 5% 1,000 ML IV ONE (09:51)
[2025-01-24 10:12] LABS: ABG BASE EXCESS -13.0 mmol/L (-2 - 3); ABG HCO3 16 mmol/L (22-26); ABG OXYGEN SATURATION 93.0 % (95-98); ABG PCO2 44 mmHg (35-45); ABG PH 7.17 (7.35-7.45); ABG PO2 86 mmHg (80-105); ABG TCO2 17
[2025-01-24] MEDS ORDERED: SODIUM CHLORIDE 0.9% 1000ML 2,310 ML IV ONE (10:30)
[2025-01-24] MEDS: SODIUM BICARBONATE 8.4% INJ 50 ML SYR IV STA (10:40)
[2025-01-24] MEDS: SODIUM BICARBONATE 8.4% SYRING 50 ML ONE (10:40)
[2025-01-24] MEDS: VASOPRESSIN 60 UNIT in DEXTROSE 5% 50ML 57 ML IV SCH (10:59)
[2025-01-24 11:35] LABS: ABG BASE EXCESS -11.0 mmol/L (-2 - 3); ABG HCO3 17 mmol/L (22-26); ABG OXYGEN SATURATION 95.0 % (95-98); ABG PCO2 48 mmHg (35-45); ABG PH 7.17 (7.35-7.45); ABG PO2 93 mmHg (80-105); ABG TCO2 19
[2025-01-24] MEDS: SODIUM BICARBONATE 8.4% INJ 50 ML SYR IV ONE ×2 (12:32→16:10)
[2025-01-24] MEDS: EPINEPHRINE HCL 1:1000 1ML 4 MG in DEXTROSE 5% 250ML 250 ML IV SCH (12:33)
[2025-01-24] MEDS: LEVETIRACETAM 500MG/5ML VIAL 500 MG in SODIUM CHLORIDE 0.9% 100 ML IV SCH (13:31)
[2025-01-24] MEDS: Vancomycin IV 1 GM in SODIUM CHLORIDE 0.9% 250ML 250 ML IV SCH (13:32)
[2025-01-24 15:42] LABS: ABG PH 7.05 (7.35-7.45)
[2025-01-24 15:43] LABS: ABG BASE EXCESS -14.0 mmol/L (-2 - 3); ABG HCO3 17 mmol/L (22-26); ABG OXYGEN SATURATION 92.0 % (95-98); ABG PCO2 61 mmHg (35-45); ABG PO2 93 mmHg (80-105); ABG TCO2 19
[2025-01-24] MEDS ORDERED: SODIUM BICARBONATE 8.4% SYRING 100 ML ONE (15:47)
[2025-01-24] MEDS ORDERED: PHENYLEPHRINE 10MG/ML VIAL 40 MG in DEXTROSE 5% 250ML 246 ML IV SCH (18:00)
[2025-01-24] MEDS ORDERED: PIPERACILLIN/TAZOBACTAM 3.375 GM VIAL ONE (18:15)
[2025-01-24] MEDS ORDERED: DEXTROSE 5% 100ML 0 ML IV ONE (18:21)
[2025-01-24] MEDS ORDERED: DEXTROSE 5% 250ML 250 ML IV ONE (18:23)
[2025-01-25] MEDS ORDERED: Vancomycin IV 1 GM in SODIUM CHLORIDE 0.9% 250ML 250 ML IV SCH (09:00)
== END 2025-01-24 20:13 | disposition expired | DRG 871 ==
LOC: ER 03:14 → ERHOLD 05:52 → ICU 07:45
PROVIDERS: ADMIT Internal Medicine; ATTEND Internal Medicine
PROC: 0BH17EZ Insertion of Endotracheal Airway into Trachea, Via Natural or Artificial Opening (ICD-10-PCS; principal; 2025-01-24)
PROC: 06HY33Z Insertion of Infusion Device into Lower Vein, Percutaneous Approach (ICD-10-PCS; 2025-01-24)
PROC: 5A1935Z Respiratory Ventilation, Less than 24 Consecutive Hours (ICD-10-PCS; 2025-01-24)
PROC: 04HL33Z Insertion of Infusion Device into Left Femoral Artery, Percutaneous Approach (ICD-10-PCS; 2025-01-24)
PROC: 3E033XZ Introduction of Vasopressor into Peripheral Vein, Percutaneous Approach (ICD-10-PCS; 2025-01-24)
PROC: 5A12012 Performance of Cardiac Output, Single, Manual (ICD-10-PCS; 2025-01-24)
DX: A41.9 Sepsis, unspecified organism (principal); J69.0 Pneumonitis due to inhalation of food and vomit; R65.21 Severe sepsis with septic shock; J96.21 Acute and chronic respiratory failure with hypoxia; N17.0 Acute kidney failure with tubular necrosis; J44.1 Chronic obstructive pulmonary disease with (acute) exacerbation; F17.200 Nicotine dependence, unspecified, uncomplicated; I10 Essential (primary) hypertension; R00.0 Tachycardia, unspecified; R00.1 Bradycardia, unspecified; I46.9 Cardiac arrest, cause unspecified; Z66 Do not resuscitate; D70.9 Neutropenia, unspecified; D64.9 Anemia, unspecified; G40.909 Epilepsy, unspecified, not intractable, without status epilepticus; G89.29 Other chronic pain; M47.9 Spondylosis, unspecified; Z98.84 Bariatric surgery status; Z79.899 Other long term (current) drug therapy
CPT/HCPCS: 31500; 36415; 36555; 36600; 71045; 74018; 80053; 81001; 82550; 82805; 83605; 83880; 84484; 85025; 85610; 85730; 87040; 87086; 92950; 93005; 94002; 94003; 94640; 99285; J0169; J0696; J2250; J2371; J2543; J3373; J7030; J7040; J7050; J7070